=== PATIENT | male | born 1955 | race Caucasian/White ===

== ENCOUNTER 2016-09-01 23:24 | Inpatient (IN) | payer MEDICARE ==
[2016-09-01] MEDS ORDERED: NITROGLYCERIN OINT 1 INCH/GM PACKET TOPICAL STA (23:46)
[2016-09-01] MEDS ORDERED: ASPIRIN 81 MG CHEW PO STA (23:46)
--- NOTE | 2016-09-01 23:50 | ED ---
General Adult HPI - General Chief complaint: Chest Pain Stated complaint: chest pain YARIEL Time Seen by Provider: 09/01/16 23:30 Source: patient, RN notes reviewed Mode of arrival: wheelchair Limitations: no limitations - History of Present Illness Initial comments: This is a 7-year-old male with past medical history significant for diabetes and hypertension. Patient states about 6:00 this evening he started having chest pain he denies any radiation of the chest pain. states he complained of shortness of breath but patient tells me he wasn't short of breath. Patient denies any diaphoresis. Patient denies abdominal pain patient denies nausea vomiting or diarrhea. Patient denies any headache patient denies numbness weakness. Patient denies any lightheadedness dizziness or near syncopal episode. Patient denies any fever chills or cough. Patient denies any leg edema or calf pain. - Related Data Home Medications Medication Instructions Recorded Confirmed risperiDONE [RisperDAL] 2 mg PO HS 05/22/14 09/01/16 DULoxetine HCL [Cymbalta] 120 mg PO HS 07/31/15 09/01/16 Pravastatin Sodium [Pravachol] 20 mg PO HS 07/31/15 09/01/16 Albuterol Inhaler [Ventolin Hfa 2 puff INHALATION RT-Q6H PRN 09/01/16 09/01/16 Inhaler] Divalproex ER [Depakote ER] 1,000 mg PO 09/01/16 09/01/16 Lisinopril [Zestril] 10 mg PO 09/01/16 09/01/16 Terazosin [Hytrin] 1 mg PO [facility] 09/01/16 09/01/16 amLODIPine [Norvasc] 5 mg PO 09/01/16 09/01/16 Allergies Allergy/AdvReac Type Severity Reaction Status Date / Time No Known Allergies Allergy Verified 09/01/16 23:45 Review of Systems ROS Statement: Those systems with pertinent positive or pertinent negative responses have been documented in the HPI. ROS Other: All systems not noted in ROS Statement are negative. Past Medical History Past Medical History: COPD, CVA/TIA, Diabetes Mellitus, Hypertension, Myocardial Infarction ([place]), Thyroid Disorder Additional Past Medical History / Comment(s): CVA- thought process impaired at times, investigating parkinson's per Last Myocardial Infarction Date:: 2011 History of Any Multi-Drug Resistant Organisms: None Reported Past Surgical History: No Surgical Hx Reported Additional Past Surgical History / Comment(s): right foot surgery Past Anesthesia/Blood Transfusion Reactions: No Reported Reaction Past Psychological History: Bipolar Smoking Status: Current every day smoker Past Alcohol Use History: None Reported Past Drug Use History: None Reported - Past Family History Father Family Medical History: No Reported History General Exam - General Exam Comments Initial Comments: GENERAL: Patient is well-developed and well-nourished. Patient is nontoxic and well- hydrated and is in no acute distress. ENT: Neck is soft and supple. No significant lymphadenopathy is noted. Oropharynx is clear. Moist mucous membranes. Neck has full range of motion without eliciting any pain. EYES: The sclera were anicteric and conjunctiva were pink and moist. Extraocular movements were intact and pupils were equal round and reactive to light. Eyelids were unremarkable. PULMONARY: Unlabored respirations. Good breath sounds bilaterally. No audible rales rhonchi or wheezing was noted. CARDIOVASCULAR: There is a regular rate and rhythm without any murmurs gallops or rubs. ABDOMEN: Soft and nontender with normal bowel sounds. No palpable organomegaly was noted. There is no palpable pulsatile mass. SKIN: Skin is clear with no lesions or rashes and otherwise unremarkable. NEUROLOGIC: Patient is alert and oriented x3. Cranial nerves II through XII are grossly intact. Motor and sensory are also intact. Normal speech, volume and content. Symmetrical smile. MUSCULOSKELETAL: Normal extremities with adequate strength and full range of motion. No lower extremity swelling or edema. No calf tenderness. LYMPHATICS: No significant lymphadenopathy is noted PSYCHIATRIC: Normal psychiatric evaluation. Limitations: no limitations Course Vital Signs 09/01/16 09/02/16 09/02/16 23:29 01:07 02:32 Temperature 99.2 F Pulse Rate 105 H 103 H 84 Respiratory 20 16 16 Rate Blood Pressure 119/61 102/73 133/65 O2 Sat by Pulse 95 98 98 Oximetry Medical Decision Making - Medical Decision Making EKG shows sinus tachycardia at 101 bpm AL interval is 138 QRSs 100 QT interval 364 QTC is 471 patient has T-wave inversions in leads 12 and aVL as well as V6. I compared this to an old EKG these appear to be new findings. Chest x-ray shows no acute abnormality. Radiologist mentions a widened mediastinum. CT of the aorta shows no acute abnormality. Because the patient's risk factors and presentation of his pain I decided to start the patient however because he was having unstable angina. I called the primary medical care doctor admitted the patient and I consult cardiology - Lab Data Result diagrams: 09/01/16 23:55 09/01/16 23:55 Lab Results 09/01/16 09/01/16 09/01/16 Range/Units 23:55 23:55 23:55 WBC 13.8 H (3.8-10.6) k/uL RBC 5.28 (4.30-5.90) m/uL Hgb 15.3 (13.0-17.5) gm/dL Hct 44.2 (39.0-53.0) % MCV 83.6 (80.0-100.0) fL MCH 28.9 (25.0-35.0) pg MCHC 34.5 (31.0-37.0) g/dL RDW 13.3 (11.5-15.5) % Plt Count 177 (150-450) k/uL Neutrophils % 67 % Lymphocytes % 22 % Monocytes % 8 % Eosinophils % 2 % Basophils % 1 % Neutrophils # 9.2 H (1.3-7.7) k/uL Lymphocytes # 3.0 (1.0-4.8) k/uL Monocytes # 1.1 H (0-1.0) k/uL Eosinophils # 0.3 (0-0.7) k/uL Basophils # 0.1 (0-0.2) k/uL PT (9.0-12.0) sec INR (<1.1) APTT (22.0-30.0) sec Sodium 138 (137-145) mmol/L Potassium 3.4 L (3.5-5.1) mmol/L Chloride 101 (98-107) mmol/L Carbon Dioxide 24 (22-30) mmol/L Anion Gap 13 mmol/L BUN 29 H (9-20) mg/dL Creatinine 1.50 H (0.66-1.25) mg/dL Est GFR (MDRD) Af Amer 58 (>60 ml/min/1.73 sqM) Est GFR (MDRD) Non-Af 48 (>60 ml/min/1.73 sqM) Glucose 153 H (74-99) mg/dL Calcium 9.2 (8.4-10.2) mg/dL Magnesium 1.7 (1.6-2.3) mg/dL Total Bilirubin 1.0 (0.2-1.3) mg/dL AST 17 (17-59) U/L ALT 18 L (21-72) U/L Alkaline Phosphatase 73 (38-126) U/L Total Creatine Kinase 54 L (55-170) U/L CK-MB (CK-2) 0.7 (0.0-2.4) ng/mL CK-MB (CK-2) Rel Index 1.3 Troponin I 0.017 (0.000-0.034) ng/mL Total Protein 7.2 (6.3-8.2) g/dL Albumin 4.1 (3.5-5.0) g/dL 09/01/16 Range/Units 23:55 WBC (3.8-10.6) k/uL RBC (4.30-5.90) m/uL Hgb (13.0-17.5) gm/dL Hct (39.0-53.0) % MCV (80.0-100.0) fL MCH (25.0-35.0) pg MCHC (31.0-37.0) g/dL RDW (11.5-15.5) % Plt Count (150-450) k/uL Neutrophils % % Lymphocytes % % Monocytes % % Eosinophils % % Basophils % % Neutrophils # (1.3-7.7) k/uL Lymphocytes # (1.0-4.8) k/uL Monocytes # (0-1.0) k/uL Eosinophils # (0-0.7) k/uL Basophils # (0-0.2) k/uL PT 11.3 (9.0-12.0) sec INR 1.1 (<1.1) APTT 26.5 (22.0-30.0) sec Sodium (137-145) mmol/L Potassium (3.5-5.1) mmol/L Chloride (98-107) mmol/L Carbon Dioxide (22-30) mmol/L Anion Gap mmol/L BUN (9-20) mg/dL Creatinine (0.66-1.25) mg/dL Est GFR (MDRD) Af Amer (>60 ml/min/1.73 sqM) Est GFR (MDRD) Non-Af (>60 ml/min/1.73 sqM) Glucose (74-99) mg/dL Calcium (8.4-10.2) mg/dL Magnesium (1.6-2.3) mg/dL Total Bilirubin (0.2-1.3) mg/dL AST (17-59) U/L ALT (21-72) U/L Alkaline Phosphatase (38-126) U/L Total Creatine Kinase (55-170) U/L CK-MB (CK-2) (0.0-2.4) ng/mL CK-MB (CK-2) Rel Index Troponin I (0.000-0.034) ng/mL Total Protein (6.3-8.2) g/dL Albumin (3.5-5.0) g/dL Critical Care Time Critical Care Time: Yes Total Critical Care Time: 35 Disposition Clinical Impression: Unstable angina pectoris Disposition: ADMITTED IP TO THIS [facility] Condition: Good Time of Disposition: 03:17
[2016-09-02 00:09] LABS: Basophils # (A) 0.1 k/uL (0-0.2); Basophils % (A) 1 %; CH 30.1; CHCM 36.1; Eosinophils # (A) 0.3 k/uL (0-0.7); Eosinophils % (A) 2 %; HCT 44.2 % (39.0-53.0); HDW 3.11; HGB 15.3 gm/dL (13.0-17.5); Luc # (Auto) 0.11; Luc % (Auto) 1; Lymphocytes % (A) 22 %; MCH 28.9 pg (25.0-35.0); MCHC 34.5 g/dL (31.0-37.0); MCV 83.6 fL (80.0-100.0); Mean Platelet Volume 8.5; Monocytes # (A) 1.1 k/uL (0-1.0); Monocytes % (A) 8 %; Neutrophils # (A) 9.2 k/uL (1.3-7.7); Neutrophils % (A) 67 %; RBC 5.28 m/uL (4.30-5.90); RDW 13.3 % (11.5-15.5); WBC 13.8 k/uL (3.8-10.6); WBC (Perox) 13.68
[2016-09-02 00:19] LABS: Calcium 9.2 mg/dL (8.4-10.2); INR 1.1 (<1.1); Magnesium 1.7 mg/dL (1.6-2.3); Partial Thromboplastin Time 26.5 sec (22.0-30.0); Potassium 3.4 mmol/L (3.5-5.1); Prothrombin Time 11.3 sec (9.0-12.0); Total Protein 7.2 g/dL (6.3-8.2)
[2016-09-02 00:40] LABS: Creatine Kinase MB 0.7 ng/mL (0.0-2.4); Troponin I 0.017 ng/mL (0.000-0.034)
--- NOTE | 2016-09-02 01:05 | XR ---
EXAM: XR Chest, 2 Views CLINICAL HISTORY: Chest pain. TECHNIQUE: Frontal and lateral views of the chest. COMPARISON: Chest radiograph dated 06/28/14. FINDINGS: Lungs: No airspace consolidation. Pleural space: No significant pleural effusion. No pneumothorax. Heart: Large cardiac silhouette. Bones/joints: Degenerative changes at the acromioclavicular joints. IMPRESSION: 1. Large cardiac silhouette. 2. No airspace opacity or pleural effusion.
[2016-09-02] MEDS ORDERED: RX INFO: IV CONTRAST WAS GIVEN 1 EACH MISC MISCELLANE PRN (01:09)
--- NOTE | 2016-09-02 03:12 | CT ---
EXAM: CT Angiography Chest Without and With Intravenous Contrast CT Angiography Abdomen Without and With Intravenous Contrast CLINICAL HISTORY: Chest pain, COPD, stroke. TECHNIQUE: Axial computed tomographic angiography images of the chest and abdomen without and with intravenous contrast using CT angiography protocol. CTDI is 11.3 mGy and DLP is 620 mGy-cm CTDI is 9.3 mGy and DLP is 528 mGy- cm This CT exam was performed using one or more of the following dose reduction techniques: automated exposure control, adjustment of the mA and/or kV according to patient size, and/or use of iterative reconstruction technique. MIP reconstructed images were created and reviewed. Coronal and sagittal reformatted images were created and reviewed. COMPARISON: CT chest dated 06/28/14. FINDINGS: VASCULATURE: Aorta: No aortic aneurysm or dissection. There is subtle ectasia of the distal abdominal aorta, measuring up to 2.3 cm. Pulmonary arteries: Not well-visualized due to contrast bolus timing. Great vessels of aortic arch: No acute findings. No dissection. No occlusion or significant stenosis. Celiac trunk and mesenteric arteries: No acute findings. Mild atherosclerotic plaque. No occlusion or significant stenosis. Renal arteries: No acute findings. No occlusion or significant stenosis. CHEST: Lungs: No airspace consolidation. A 6 mm pulmonary nodule at the right lung apex is unchanged (remeasured). Pleural space: Unremarkable. No significant effusion. No pneumothorax. Heart: Cardiomegaly. Small to moderate pericardial effusion measures up to 1.1 cm thick. Mediastinum: Trace secretions within the distal trachea. Thyroid: There is a 9 mm left thyroid lobe hypodense nodule. ABDOMEN: Liver: Prominent right hepatic lobe. No mass. Gallbladder and bile ducts: Trace cholelithiasis or gallbladder sludge. No ductal dilation. Pancreas: Unremarkable. No ductal dilation. No mass. Spleen: The spleen is mildly enlarged, measuring 14 x 7 cm. Adrenals: Unremarkable. Kidneys and ureters: There is a 5 x 8 mm nonobstructing stone at the upper pole of the right kidney. A 3.6 cm hypodensity at the midportion of the right kidney, most likely represents a cyst. Stomach and bowel: Unremarkable as visualized. No obstruction. Intraperitoneal space: Unremarkable as visualized. No significant fluid collection. No free air. CHEST and ABDOMEN: Bones/joints: Degenerative changes of the thoracic spine. Anterior bridging osteophytes at the mid/lower thoracic spine, compatible with DISH. Facet arthropathy at the lower lumbar spine. No acute fracture. No dislocation. IMPRESSION: 1. No aortic aneurysm or dissection. 2. Cardiomegaly. 3. Small to moderate pericardial effusion measures up to 1.1 cm thick. 4. A 6 mm (remeasured) pulmonary nodule at the right lung apex is unchanged. 5. Nonobstructing 5 x 8 mm right renal stone. 6. Mild splenomegaly. 7. Additional chronic and incidental findings as above. [employer] 09/02/16 03:14 Verify Receipt Verified receipt with ER Senior Credit Officer, given to Dr. Glover on 09/02 03:14 (-04:00)
[2016-09-02] MEDS ORDERED: HEPARIN SODIUM,PORCINE 5,000 UNIT/ML 1 ML VIAL IV ONE (03:16)
[2016-09-02] MEDS ORDERED: NITROGLYCERIN SL TABS 0.4 MG TAB SUBLINGUAL PRN (03:17)
[2016-09-02] MEDS: HEPARIN SODIUM,PORCINE/D5W PMX 25,000 UNIT in DEXTROSE/WATER 1 500ML.BAG IV SCH ×2 (04:11→04:15)
[2016-09-02 07:56] LABS: Creatine Kinase MB 0.5 ng/mL (0.0-2.4); Troponin I 0.027 ng/mL (0.000-0.034)
[2016-09-02] MEDS: NITROGLYCERIN OINT 1 INCH/GM PACKET TOPICAL SCH ×3 (08:00→17:47)
[2016-09-02 10:51] LABS: Glucose,Whole Blood 106 mg/dL (75-99)
[2016-09-02] MEDS ORDERED: ALBUTEROL NEBULIZED 2.5 MG/3 ML INHALATION PRN (13:29)
--- NOTE | 2016-09-02 13:29 | P.HPIM ---
History of Present Illness H&P Date: 09/02/16 Chief Complaint: Chest pain. This is a 7-year-old male one of Dr. Francis with a previous medical history significant for hypertension and hypertensive cardio vascular disease, history of coronary artery disease post microinfarction back in 2011 without any left heart catheterization, history of TIA with a cerebrovascular accident back in 2008 with left-sided hand weakness and mild speech residual, hyperlipidemia, are considered disease, chronic tobacco use and dependence with COPD, patient was seen by about a week ago and he was having symptoms of possible TIA versus stroke and he was having issues with the left eye, at that time he was seen her and he was supposed to follow-up with her as an outpatient next week however the patient was laying down in bed yesterday watching TV at around 6:00 in the evening when he developed to have mid sternal chest pressure radiating to the neck associated with no shortness of breath, has no nausea vomiting or diarrhea at that time. Patient ended up coming to the emergency department today in the morning because of recurrent chest pain and he was admitted to the hospital for evaluation for unstable angina his initial cardiac enzymes are negative. Was placed on heparin drip, patient has been falling quite a bit he has not been caring for himself quite a bit he has significant bruising on his left lower extremity he did not have any closed head trauma over the last few days. Review of Systems Constitutional: Reports fatigue, Reports weakness, Denies anorexia, Denies chronic headaches, Denies chronic pain, Denies weight gain, Denies weight loss Eyes: bilateral blurred vision, bilateral decreased vision, denies bulging eye Ears: deny: decreased hearing Ears, nose, mouth and throat: Denies dysphagia, Denies neck lump, Denies swelling in throat, Denies sore throat, Denies vertigo Cardiovascular: Reports dyspnea on exertion, Reports high blood pressure, Reports shortness of breath, Denies chest pain, Denies decreased exercise tolerance, Denies phlebitis, Denies rapid heart beat, Denies syncope Respiratory: Denies congestion, Denies cough, Denies cough with sputum, Denies home oxygen, Denies sleep apnea, Denies snoring, Denies wheezing Gastrointestinal: Denies abdominal pain, Denies bloating, Denies BRBPR, Denies constipation, Denies excessive gas, Denies heartburn, Denies melena, Denies nausea, Denies vomiting Genitourinary: Reports nocturia, Denies dysuria Musculoskeletal: Reports atrophy, Reports frequent falls, Reports gait dysfunction Musculoskeletal: absent: ankle pain, ankle stiffness, ankle swelling, elbow pain , elbow stiffness, elbow swelling, foot pain, foot stiffness, foot swelling, hand pain, hand stiffness, hand swelling, hip pain, hip stiffness, hip swelling , knee pain, knee stiffness, knee swelling, shoulder pain, shoulder stiffness, shoulder swelling, wrist pain, wrist stiffness, wrist swelling Integumentary: Denies pruritus, Denies rash Neurological: Reports change in speech, Reports gait dysfunction, Reports spasticity, Denies headaches, Denies loss of vision, Denies memory loss, Denies migraines, Denies motor disturbance, Denies numbness, Denies paresthesias, Denies tremors, Denies vertigo Psychiatric: Denies anxiety, Denies depression Endocrine: Denies fatigue, Denies weight change Past Medical History Past Medical History: Atrial Fibrillation, COPD, CVA/TIA, Hyperlipidemia, Hypertension, Myocardial Infarction ([place]), Musculoskeletal Disorder, Neurologic Disorder, Osteoarthritis (OA), Prostate Disorder, Thyroid Disorder Additional Past Medical History / Comment(s): CVA- slight R sided weakness and thought process impaired at times, parkinson's -pt states they still have not diagnosed if he has it or not, hypothryoid, arthritis bilateral hands. Last Myocardial Infarction Date:: 2011 History of Any Multi-Drug Resistant Organisms: None Reported Past Surgical History: Appendectomy Additional Past Surgical History / Comment(s): right foot toe surgery as a child , pt denies ever having cardiac cath. Past Anesthesia/Blood Transfusion Reactions: No Reported Reaction Past Psychological History: Bipolar Additional Psychological History / Comment(s): Pt resides with his spouse. He uses a walker to ambulate. He no longer drives. Spouse drives. His manages his medications. No home care. Smoking Status: Current every day smoker (Patient smokes about a pack every day for the past 3 years, he denies any marijuana use he denies any street drug use or abuse, he denies any alcohol abuse.) Past Alcohol Use History: None Reported Additional Past Alcohol Use History / Comment(s): Pt started smoking in 1968 and is about 1 ppd smoker. Past Drug Use History: None Reported - Past Family History Father Family Medical History: Cancer (Father in his 70s from some sort of cancer did not recall the type) Additional Family Medical History / Comment(s): Pt states his father was healthy and at the age of 80yrs. Mother Family Medical History: Cancer, Vascular Disorder (Mother at age of 60 from a brain aneurysm.) Additional Family Medical History / Comment(s): Mother of breast cancer at the age of 41 yrs. Brother(s) Family Medical History: No Reported History (Patient has 3 half-brothers no major medical problems) Medications and Allergies Home Medications Medication Instructions Recorded Confirmed Type risperiDONE [RisperDAL] 2 mg PO HS 05/22/14 09/01/16 History DULoxetine HCL [Cymbalta] 120 mg PO HS 07/31/15 09/01/16 History Pravastatin Sodium [Pravachol] 20 mg PO HS 07/31/15 09/01/16 History Albuterol Inhaler [Ventolin Hfa 2 puff INHALATION RT-Q6H PRN 09/01/16 09/01/16 History Inhaler] Divalproex ER [Depakote ER] 1,000 mg PO HS 09/01/16 09/01/16 History Lisinopril [Zestril] 10 mg PO HS 09/01/16 09/01/16 History Terazosin [Hytrin] 1 mg PO QAM 09/01/16 09/01/16 History amLODIPine [Norvasc] 5 mg PO HS 09/01/16 09/01/16 History Allergies Allergy/AdvReac Type Severity Reaction Status Date / Time No Known Allergies Allergy Verified 09/01/16 23:45 Physical Exam Vitals: Vital Signs Temp Pulse Pulse Resp BP BP Pulse Ox 09/02/16 12:00 97.0 F L 75 130/69 98 09/02/16 11:35 97.5 F L 71 16 133/87 98 09/02/16 09:49 68 16 121/69 100 09/02/16 09:00 66 16 125/79 99 09/02/16 07:00 68 16 121/72 98 09/02/16 06:21 77 16 107/69 98 09/02/16 04:18 82 16 103/63 98 Intake and Output 09/01/16 09/02/16 09/02/16 22:59 06:59 14:59 Intake Total 71.333 Balance 71.333 Intake: Intake, IV Titration 71.333 Amount Heparin Sodium,Porcine/ 71.333 D5w Pmx 25,000 unit In Dextrose/Water 1 500ml. bag @ 10.25 UNITS/KG/HR 20.08 mls/hr IV .Q24H [facility] Rx#:[id number] - Constitutional General appearance: average body habitus, mild distress - EENT Eyes: anicteric sclerae, no EOMI, PERRLA, no ptosis, no scleral icterus, normal appearance ENT: hearing grossly normal, normal oropharynx, no thrush Ears: bilateral: normal - Neck Neck: no lymphadenopathy, normal ROM, no rigidity, no stridor, no thyromegaly Carotids: bilateral: upstroke delayed Thyroid: bilateral: normal size - Respiratory Respiratory: bilateral: diminished, prolonged expiration, negative: dullness, rales, rhonchi, wheezing, prolonged inspiration - Cardiovascular Rhythm: regular Heart sounds: normal: S1, S2 Abnormal Heart Sounds: systolic murmur, no rub, no S3 Gallop, no S4 Gallop, no click - Gastrointestinal General gastrointestinal: normal bowel sounds, no rigid, no scaphoid, soft, no splenomegaly, no tenderness, no umbilical hernia, no ventral hernia - Integumentary Integumentary: normal, normal turgor - Neurologic Neurologic: CNII-XII intact - Musculoskeletal Musculoskeletal: generalized weakness - Psychiatric Psychiatric: A&O x's 3, no appropriate affect, no intact judgment & insight Results CBC & Chem 7: 09/01/16 23:55 09/01/16 23:55 Labs: Abnormal Lab Results - Last 24 Hours (Table) 09/02/16 09/02/16 09/02/16 Range/Units 06:38 06:38 10:49 APTT 55.2 H (22.0-30.0) sec POC Glucose (mg/dL) 106 H (75-99) mg/dL Total Creatine Kinase 36 L (55-170) U/L Thrombosis Risk Factor Assmnt - DVT/VTE Prophylaxis DVT/VTE Prophylaxis: Pharmacologic Prophylaxis ordered, Mechanical Prophylaxis ordered - Choose All That Apply Any of the Below Risk Factors Present?: Yes Each Factor Represents 1 point: Abnormal pulmonary function (COPD), Age 41-60 years, Obesity (BMI >25) Other Risk Factors: No Other congenital or acquired thrombophilia - If yes, enter type in comment: No Thrombosis Risk Factor Assessment Total Risk Factor Score: 3 Thrombosis Risk Factor Assessment Level: Moderate Risk Assessment and Plan Plan: Assessment and plan: 1. Unstable angina in a patient with a prior history of CAD with AR. Start the patient on heparin drip, aspirin 325 mg orally once every day, nitro glycerin paste 1 inch every 6 hours, continue aspirin 325 mg orally once every day, continue Lipitor 40 mg orally once every day, echocardiogram, patient will be seen and evaluated by cardiology. 2. Small to moderate pericardial effusion and cardiology. Echocardiogram for evaluation to rule out any cardiac tamponade. 2. Hypertension and hypertensive cardiovascular disease. Continue patient on lisinopril 10 mg orally once every day, amlodipine 10 mg orally once every day. 3. Hyperlipemia. Continue Lipitor 40 mg orally once every day. 4. Reported history of diabetes mellitus type 2. Patient is not taking any medication at this time we'll check hemoglobin A1c. 5. History of CVA and TIA. Continue aspirin 325 mg orally once every day for secondary stroke prevention along with Lipitor 40 mg orally once every day. 6. Possible Parkinson disease. Patient may benefit from small dose of Sinemet. 7. Tobacco use and dependence. Smoking cessation and counseling an increased risk of CVA, CAD, mellitus. 8. COPD. Patient will be started on Symbicort 160/4.5 g 2 puffs inhalation twice every day, Spiriva HandiHaler 1 capsule inhalation once every day. 9. Right pulmonary nodule. Patient will need to have a computed tomography scan of the chest in 6 months from now. 10. Nonobstructing kidney stone. We will check the patient intact PTH. 11. Acute on chronic kidney disease. Continue IV fluid resuscitation repeat the patient CMP tomorrow morning check magnesium phosphorus and intact PTH. 12. Possible DISH. Follow-up with the managing broker an outpatient. 13. Enlarged prostate. Continue Hytrin 1 mg orally once every day. 14. Bipolar disorder. Continue Cymbalta 120 mg orally once every day. 15. DVT prophylaxis. Currently on heparin drip. 16. GI prophylaxis. Continue patient on Protonix 40 mg orally once every day. 17. Patient is full code. 18. Admit to inpatient. Estimate a length of stay 2 midnights.
[2016-09-02 13:31] LABS: Creatine Kinase MB 0.6 ng/mL (0.0-2.4); Troponin I 0.014 ng/mL (0.000-0.034)
[2016-09-02] MEDS ORDERED: TIOTROPIUM 18 MCG/PUFF INHALER INHALATION STA (13:34)
--- NOTE | 2016-09-02 14:45 | P.CRDCN ---
History of Present Illness Consult date: 09/02/16 Requesting physician: Scott Dougherty Consult reason: chest pain Chief complaint: Chest pain History of present illness: This is a pleasant 61-year-old gentleman with known history of hypertension, prior myocardial infarction, TIA, prior CVAs, nicotine dependence , COPD, hyperlipidemia, Parkinson's. Patient presented to the hospital on this occasion with symptoms of midsternal chest pain which started around 6 PM last evening. Patient states that the pain was sharp in nature and worsened with taking a deep breath. Also states that the pain He does state that he became short of breath and clammy. EKG on presentation here showed sinus tachycardia with inferior lateral ST-T wave changes. Chest x-ray reveals no significant change. CTA of the aorta was performed which did not reveal any evidence of aneurysm or dissection. Small to moderate pericardial effusion measuring 1.1 cm was noted. There was also a 6 mm pulmonary nodule at the right lung apex unchanged from previous. Blood pressure on arrival here 120/60 with a heart rate of 105, 95% on room air, temperature 99.2. Blood pressure today 130/60 with a heart rate in the 70s. Blood cell count 13.8, hemoglobin 15.3, potassium 3.4, BUN 29, creatinine 1.5. Troponins 0.017, 0.027, 0.014. He is currently chest pain-free. Past Medical History Past Medical History: Atrial Fibrillation, COPD, CVA/TIA, Hyperlipidemia, Hypertension, Myocardial Infarction ([place]), Musculoskeletal Disorder, Neurologic Disorder, Osteoarthritis (OA), Prostate Disorder, Thyroid Disorder Additional Past Medical History / Comment(s): CVA- slight R sided weakness and thought process impaired at times, parkinson's -pt states they still have not diagnosed if he has it or not, hypothryoid, arthritis bilateral hands. Last Myocardial Infarction Date:: 2011 History of Any Multi-Drug Resistant Organisms: None Reported Past Surgical History: Appendectomy Additional Past Surgical History / Comment(s): right foot toe surgery as a child , pt denies ever having cardiac cath. Past Anesthesia/Blood Transfusion Reactions: No Reported Reaction Past Psychological History: Bipolar Additional Psychological History / Comment(s): Pt resides with his spouse. He uses a walker to ambulate. He no longer drives. Spouse drives. His manages his medications. No home care. Smoking Status: Current every day smoker (Patient smokes about a pack every day for the past 3 years, he denies any marijuana use he denies any street drug use or abuse, he denies any alcohol abuse.) Past Alcohol Use History: None Reported Additional Past Alcohol Use History / Comment(s): Pt started smoking in 1968 and is about 1 ppd smoker. Past Drug Use History: None Reported - Past Family History Father Family Medical History: Cancer (Father in his 70s from some sort of cancer did not recall the type) Additional Family Medical History / Comment(s): Pt states his father was healthy and at the age of 80yrs. Mother Family Medical History: Cancer, Vascular Disorder (Mother at age of 60 from a brain aneurysm.) Additional Family Medical History / Comment(s): Mother of breast cancer at the age of 41 yrs. Brother(s) Family Medical History: No Reported History (Patient has 3 half-brothers no major medical problems) Medications and Allergies Home Medications Medication Instructions Recorded Confirmed Type risperiDONE [RisperDAL] 2 mg PO HS 05/22/14 09/01/16 History DULoxetine HCL [Cymbalta] 120 mg PO HS 07/31/15 09/01/16 History Pravastatin Sodium [Pravachol] 20 mg PO HS 07/31/15 09/01/16 History Albuterol Inhaler [Ventolin Hfa 2 puff INHALATION RT-Q6H PRN 09/01/16 09/01/16 History Inhaler] Divalproex ER [Depakote ER] 1,000 mg PO 09/01/16 09/01/16 History Lisinopril [Zestril] 10 mg PO HS 09/01/16 09/01/16 History Terazosin [Hytrin] 1 mg PO QA 09/01/16 09/01/16 History amLODIPine [Norvasc] 5 mg PO 09/01/16 09/01/16 History Allergies Allergy/AdvReac Type Severity Reaction Status Date / Time No Known Allergies Allergy Verified 09/01/16 23:45 Physical Exam Vitals: Vital Signs Temp Pulse Pulse Resp BP BP Pulse Ox 09/02/16 12:00 97.0 F L 75 130/69 98 09/02/16 11:35 97.5 F L 71 16 133/87 98 09/02/16 09:49 68 16 121/69 100 09/02/16 09:00 66 16 125/79 99 09/02/16 07:00 68 16 121/72 98 09/02/16 06:21 77 16 107/69 98 09/02/16 04:18 82 16 103/63 98 Intake and Output 09/01/16 09/02/16 09/02/16 22:59 06:59 14:59 Intake Total 71.333 Balance 71.333 Intake: Intake, IV Titration 71.333 Amount Heparin Sodium,Porcine/ 71.333 D5w Pmx 25,000 unit In Dextrose/Water 1 500ml. bag @ 10.25 UNITS/KG/HR 20.08 mls/hr IV .Q24H [facility] Rx#:[id number] PHYSICAL EXAMINATION: HEENT: Head is atraumatic, normocephalic. Pupils equal, round. Neck is supple. There is no elevated jugular venous pressure. HEART EXAMINATION: R S1 and S2 systolic murmur is heard. CHEST EXAMINATION: Lungs are clear to auscultation and precussion. No chest wall tenderness is noted on palpation or with deep breathing. ABDOMEN: Soft, nontender. Bowel sounds are heard. No organomegaly noted. EXTREMITIES: 2+ peripheral pulses with no evidence of peripheral edema and no calf tenderness noted. NEUROLOGIC patient is awake, alert and oriented -3. . Results 09/01/16 23:55 09/01/16 23:55 Cardiac Enzymes 09/02/16 09/02/16 Range/Units 06:38 12:44 CK-MB (CK-2) 0.5 0.6 (0.0-2.4) ng/mL Troponin I 0.027 0.014 (0.000-0.034) ng/mL Coagulation 09/02/16 Range/Units 06:38 APTT 55.2 H (22.0-30.0) sec Current Medications Generic Name Dose Route Start Last Admin Trade Name Freq PRN Reason Stop Dose Admin Albuterol Sulfate 2.5 mg 09/02/16 13:29 Ventolin Nebulized INHALATION RT-Q6H PRN Dyspnea Amlodipine Besylate 5 mg 09/02/16 21:00 Norvasc PO HS [facility] Aspirin 325 mg 09/03/16 09:00 Aspirin PO DAILY [facility] Divalproex Sodium 1,000 mg 09/02/16 21:00 Depakote Er PO HS [facility] Duloxetine HCl 120 mg 09/02/16 21:00 Cymbalta PO HS [facility] Heparin Sodium/Dextrose 25,000 500 mls @ 20.08 mls/hr 09/02/16 03:30 07:49 unit/ IV Solution IV 10.2 units/kg/hr .Q24H [facility] 20 mls/hr Protocol Titration 10.25 UNITS/KG/HR Lisinopril 10 mg 09/02/16 21:00 Zestril PO HS [facility] Miscellaneous Information 1 each 09/02/16 01:09 09/02/16 02:31 Rx Info: Iv Contrast Was Given MISCELLANE 09/04/16 01:11 1 each DAILY PRN Administration Per Protocol Nitroglycerin 1 inch 09/02/16 06:00 09/02/16 12:56 Nitro-Bid Oint TOPICAL 1 inch Q6HR [facility] Administration Nitroglycerin 0.4 mg 09/02/16 03:17 Nitrostat SUBLINGUAL Q5M PRN Chest Pain Pravastatin Sodium 20 mg 09/02/16 21:00 Pravachol PO HS [facility] Risperidone 2 mg 09/02/16 21:00 Risperdal PO HS [facility] Terazosin HCl 1 mg 09/03/16 09:00 Hytrin PO QAM [facility] Intake and Output 09/01/16 09/02/16 09/02/16 22:59 06:59 14:59 Intake Total 71.333 Balance 71.333 Intake: Intake, IV Titration 71.333 Amount Heparin Sodium,Porcine/ 71.333 D5w Pmx 25,000 unit In Dextrose/Water 1 500ml. bag @ 10.25 UNITS/KG/HR 20.08 mls/hr IV .Q24H [facility] Rx#:[id number] EKG Interpretations (text) EKG shows a sinus tachycardia with inferior lateral ST-T wave changes Assessment and Plan Plan: Assessment and plan #1 chest pain with some atypical features for coronary artery disease. Currently on IV heparin drip. EKG shows normal sinus rhythm with inferior lateral ST-T wave changes. Patient has been noted to have these changes on prior EKGs. Troponins 0.017, 0.0-7, 0.014. #2 small to moderate pericardial effusion on CT #3 hypertension #4 hyperlipidemia #5 diabetes #6 Parkinson's #7 History of TIA and CVAs #8nicotine dependence #9 COPD Plan Will obtain a d-dimer, sed rate, echocardiogram with Doppler study. We will also schedule the patient for a Lexiscan stress test tomorrow. Further recommendations to follow. DNP note has been reviewed, I agree with a documented findings and plan of care. Patient was seen and examined.
[2016-09-02 16:33] LABS: Glucose,Whole Blood 112 mg/dL (75-99)
[2016-09-02 20:55] LABS: Glucose,Whole Blood 109 mg/dL (75-99)
[2016-09-02] MEDS: DULoxetine HCL 60 MG CAPSULE.DR PO SCH (21:04)
[2016-09-02] MEDS: amLODIPine 5 MG TAB PO SCH (21:04)
[2016-09-02] MEDS: DIVALPROEX ER 500 MG TAB.ER.24H PO SCH (21:04)
[2016-09-02] MEDS: PRAVASTATIN SODIUM 20 MG TAB PO SCH (21:05)
[2016-09-02] MEDS: risperiDONE 2 MG TAB PO SCH (21:05)
[2016-09-02] MEDS: LISINOPRIL 10 MG TAB PO SCH (21:06)
[2016-09-03] MEDS: NITROGLYCERIN OINT 1 INCH/GM PACKET TOPICAL SCH ×3 (00:33→13:14)
[2016-09-03 02:45] VITALS: RESP 18
[2016-09-03] MEDS: HEPARIN SODIUM,PORCINE/D5W PMX 25,000 UNIT in DEXTROSE/WATER 1 500ML.BAG IV SCH (04:18)
[2016-09-03 06:02] LABS: Glucose,Whole Blood 105 mg/dL (75-99)
[2016-09-03 06:25] LABS: Basophils # (A) 0.1 k/uL (0-0.2); Basophils % (A) 1 %; CH 29.8; CHCM 34.7; Eosinophils # (A) 0.2 k/uL (0-0.7); Eosinophils % (A) 2 %; HCT 37.5 % (39.0-53.0); HDW 3.03; HGB 12.8 gm/dL (13.0-17.5); Luc % (Auto) 1; Lymphocytes # (A) 2.5 k/uL (1.0-4.8); Lymphocytes % (A) 30 %; MCH 29.5 pg (25.0-35.0); MCHC 34.1 g/dL (31.0-37.0); MCV 86.4 fL (80.0-100.0); Mean Platelet Volume 8.6; Monocytes # (A) 0.6 k/uL (0-1.0); Monocytes % (A) 7 %; Neutrophils # (A) 4.8 k/uL (1.3-7.7); Neutrophils % (A) 59 %; RBC 4.35 m/uL (4.30-5.90); RDW 13.4 % (11.5-15.5); WBC 8.2 k/uL (3.8-10.6); WBC (Perox) 8.12
[2016-09-03 06:39] LABS: ALT 14 U/L (21-72); AST 15 U/L (17-59); Alkaline Phosphatase 60 U/L (38-126); Anion Gap 10 mmol/L; Blood Urea Nitrogen 34 mg/dL (9-20); Calcium 8.5 mg/dL (8.4-10.2); Carbon Dioxide 25 mmol/L (22-30); Chloride 104 mmol/L (98-107); Cholesterol 100 mg/dL (<200); Glucose 103 mg/dL (74-99); HDL Cholesterol 32 mg/dL (40-60); Non-African American GFR(MDRD) >60 (>60 ml/min/1.73 sqM); Potassium 3.5 mmol/L (3.5-5.1); Sodium 139 mmol/L (137-145); Total Bilirubin 0.9 mg/dL (0.2-1.3); Total Protein 6.6 g/dL (6.3-8.2); Triglycerides 101 mg/dL (<150)
[2016-09-03] MEDS ORDERED: REGADENOSON 0.4 MG/5 ML SYRINGE IV ONE (09:00)
[2016-09-03] MEDS ORDERED: AMINOPHYLLINE 500 MG/20 ML VIAL IV PRN (09:00)
--- NOTE | 2016-09-03 10:28 | ECHOF ---
Referral Reason:pericardial effusion MEASUREMENTS -------- HEIGHT: 162.6 cm WEIGHT: 98.0 kg BP: 121/69 IVSd: 1.6 cm (0.6 - 1.1) LVIDd: 5.2 cm (3.9 - 5.3) LVPWd: 1.8 cm (0.6 - 1.1) IVSs: 1.7 cm LVIDs: 4.5 cm LVPWs: 1.4 cm LA Diam: 3.6 cm (2.7 - 3.8) LAESV Index (A-L): 48.74 ml/m Ao Diam: 3.6 cm (2.0 - 3.7) AV Cusp: 2.1 cm (1.5 - 2.6) LA Diam: 4.1 cm (2.7 - 3.8) MV EXCURSION: 23.948 mm (> 18.000) MV EF SLOPE: 79 mm/s (70 - 150) EPSS: 0.6 cm MV E Tobi: 0.46 m/s MV DecT: 178 ms MV A Tobi: 0.49 m/s MV E/A Ratio: 0.94 RAP: 5.00 mmHg RVSP: 12.70 mmHg FINDINGS -------- Sinus rhythm. This was a technically adequate study. There is severe concentric left ventricular hypertrophy. Overall left ventricular systolic function is low-normal with, an EF between 50 - 55 %. The right ventricle is normal in size. LA is severely dilated >40 ml/m2 The right atrial size is normal. There is mild aortic valve sclerosis. There is no evidence of aortic regurgitation. Mild mitral regurgitation is present. Mild tricuspid regurgitation present. There is no evidence of pulmonary hypertension. The right ventricular systolic pressure, as measured by Doppler, is 12.70mmHg. There is no pulmonic regurgitation present. The aortic root size is normal. There is a small, generalized pericardial effusion present. CONCLUSIONS -------- 1. There is severe concentric left ventricular hypertrophy. 2. Overall left ventricular systolic function is low-normal with, an EF between 50 - 55 %. 3. LA is severely dilated >40 ml/m2 4. There is mild aortic valve sclerosis. 5. Mild mitral regurgitation is present. 6. Mild tricuspid regurgitation present. 7. There is no evidence of pulmonary hypertension. 8. The right ventricular systolic pressure, as measured by Doppler, is 12.70mmHg. 9. There is a small, generalized pericardial effusion present. THERAPY ADMINISTRATIVE ASSISTANT: Moni Shepherd RDCS
--- NOTE | 2016-09-03 11:19 | NM ---
EXAMINATION TYPE: NM stress lexiscan cardiolite DATE OF EXAM: 09/03/2016 11:07 AM COMPARISON: 07/01/2014 HISTORY: TECHNIQUE: After the intravenous administration of 11 mCi Tc 99m Sestamibi - Cardiolite resting SPEC T images acquired 60 minutes post injection. The patient received 0.4mg Lexiscan, 27.3 mCi Tc 99m Sestamibi - Stress images obtained [address] injection FINDINGS: Review of stress and rest SPECT images demonstrates fixed perfusion defect involving the apical later al myocardium. No definite stress-induced area of reversibility.. Gated analysis shows normal wall m otion with an estimated left ventricular ejection fraction of 43 %. IMPRESSION: No scintigraphic evidence for reversible ischemia. Ejection fraction 43%.
--- NOTE | 2016-09-03 11:24 | EST ---
DATE OF SERVICE: 09/03/2016 AGE: 61Y SEX: M HT: 5'11" WT: 216 lbs. Lexiscan Cardiolite Stress Test *Heart Rate Blood Pressure *Rest: 75 Rest: 151/94 * *Max. Achieved: 85 Maximum BP: 151/94 85% PMHR: 136 100% PMHR: 160 *METS: - INDICATIONS: Chest pain. MEDICATIONS: - CLINICAL INFORMATION: Chest pain, hypertension, history of smoking 1 pack of cigarettes a day for over 40 years. Resting ECG shows sinus rhythm, rate of 75 beats per minute, ME interval of 0.16, QRS 0.08, nonspecific ST-T wave changes. Utilizing a standard Lexiscan protocol, Lexiscan was given IV push followed by serial EKGs without any chest pain or pressure or ST segment deviations indicative of ischemia in any of the monitoring 12 leads. IMPRESSION: 1. Baseline rhythm is sinus with nonspecific ST-T wave changes. 2. Negative Lexiscan Cardiolite study. 3. Nuclear scintigrams to follow from Radiology Department.
[2016-09-03 11:51] LABS: Glucose,Whole Blood 130 mg/dL (75-99)
--- NOTE | 2016-09-03 12:41 | P.PN ---
Subjective This is a 7-year-old male one of Dr. Francis with a previous medical history significant for hypertension and hypertensive cardio vascular disease, history of coronary artery disease post microinfarction back in 2011 without any left heart catheterization, history of TIA with a cerebrovascular accident back in 2008 with left-sided hand weakness and mild speech residual, hyperlipidemia, are considered disease, chronic tobacco use and dependence with COPD, patient was seen by about a week ago and he was having symptoms of possible TIA versus stroke and he was having issues with the left eye, at that time he was seen her and he was supposed to follow-up with her as an outpatient next week however the patient was laying down in bed yesterday watching TV at around 6:00 in the evening when he developed to have mid sternal chest pressure radiating to the neck associated with no shortness of breath, has no nausea vomiting or diarrhea at that time. Patient ended up coming to the emergency department today in the morning because of recurrent chest pain and he was admitted to the hospital for evaluation for unstable angina his initial cardiac enzymes are negative. Was placed on heparin drip, patient has been falling quite a bit he has not been caring for himself quite a bit he has significant bruising on his left lower extremity he did not have any closed head trauma over the last few days. 09/03: He has been seen by cardiology and underwent Lexiscan stress test which was negative. Echocardiogram revealed severe concentric left ventricle hypertrophy with EF 50-55%, LA severely dilated at greater than 40, mild aortic valve sclerosis, mild mitral regurgitation, mild tricuspid regurgitation. No pulmonary hypertension. Small generalized pericardial effusion present. Patient is requesting medicine for his tremors and Sinemet started twice daily. Depakote level is 68.9.. Anticipate possible discharge by Tuesday. Objective - Vital Signs Vital signs: Vital Signs Temp 97.6 F 09/03/16 00:00 Pulse 74 09/03/16 04:00 Resp 18 09/03/16 04:00 BP 113/55 09/03/16 04:00 Pulse Ox 90 L 09/03/16 04:00 Intake & Output 09/02/16 09/03/16 09/03/16 18:59 06:59 18:59 Intake Total 311.333 809.667 Balance 311.333 809.667 Weight 93.4 kg Intake: IV 60 160 Heparin Sodium,Porcine/ 60 160 D5w Pmx 25,000 unit In Dextrose/Water 1 500ml. bag @ 10.25 UNITS/KG/HR 20.08 mls/hr IV .Q24H [facility] Rx#:[id number] Intake, IV Titration 71.333 409.667 Amount Heparin Sodium,Porcine/ 71.333 409.667 D5w Pmx 25,000 unit In Dextrose/Water 1 500ml. bag @ 10.25 UNITS/KG/HR 20.08 mls/hr IV .Q24H [facility] Rx#:[id number] Oral 180 240 - Exam General appearance: average body habitus, mild distress - EENT Eyes: anicteric sclerae, no EOMI, PERRLA, no ptosis, no scleral icterus, normal appearance ENT: hearing grossly normal, normal oropharynx, no thrush Ears: bilateral: normal - Neck Neck: no lymphadenopathy, normal ROM, no rigidity, no stridor, no thyromegaly Carotids: bilateral: upstroke delayed Thyroid: bilateral: normal size - Respiratory Respiratory: bilateral: diminished, prolonged expiration, negative: dullness, rales, rhonchi, wheezing, prolonged inspiration - Cardiovascular Rhythm: regular Heart sounds: normal: S1, S2 Abnormal Heart Sounds: systolic murmur, no rub, no S3 Gallop, no S4 Gallop, no click - Gastrointestinal General gastrointestinal: normal bowel sounds, no rigid, no scaphoid, soft, no splenomegaly, no tenderness, no umbilical hernia, no ventral hernia - Integumentary Integumentary: normal, normal turgor - Neurologic Neurologic: CNII-XII intact - Musculoskeletal Musculoskeletal: generalized weakness - Psychiatric Psychiatric: A&O x's 3, no appropriate affect, no intact judgment & insight - Labs CBC & Chem 7: 09/03/16 05:38 09/03/16 05:38 Labs: Abnormal Lab Results - Last 24 Hours (Table) 09/02/16 09/02/16 09/02/16 Range/Units 10:49 12:44 15:47 Hgb (13.0-17.5) gm/dL Hct (39.0-53.0) % Plt Count (150-450) k/uL APTT (22.0-30.0) sec D-Dimer 0.69 H (<0.60) mg/L FEU BUN (9-20) mg/dL Glucose (74-99) mg/dL POC Glucose (mg/dL) 106 H (75-99) mg/dL AST (17-59) U/L ALT (21-72) U/L Total Creatine Kinase 39 L (55-170) U/L HDL Cholesterol (40-60) mg/dL 09/02/16 09/02/16 09/03/16 Range/Units 16:24 20:54 05:38 Hgb (13.0-17.5) gm/dL Hct (39.0-53.0) % Plt Count (150-450) k/uL APTT (22.0-30.0) sec D-Dimer (<0.60) mg/L FEU BUN 34 H (9-20) mg/dL Glucose 103 H (74-99) mg/dL POC Glucose (mg/dL) 112 H 109 H (75-99) mg/dL AST 15 L (17-59) U/L ALT 14 L (21-72) U/L Total Creatine Kinase (55-170) U/L HDL Cholesterol 32 L (40-60) mg/dL 09/03/16 09/03/16 09/03/16 Range/Units 05:38 05:47 06:01 Hgb 12.8 L (13.0-17.5) gm/dL Hct 37.5 L (39.0-53.0) % Plt Count 137 L (150-450) k/uL APTT 32.8 H (22.0-30.0) sec D-Dimer (<0.60) mg/L FEU BUN (9-20) mg/dL Glucose (74-99) mg/dL POC Glucose (mg/dL) 105 H (75-99) mg/dL AST (17-59) U/L ALT (21-72) U/L Total Creatine Kinase (55-170) U/L HDL Cholesterol (40-60) mg/dL Assessment and Plan Plan: 1. Unstable angina in a patient with a prior history of CAD with [place]. That is post stress test, continue aspirin 325 mg orally once every day, continue Lipitor 40 mg orally once every day, echocardiogram, cardiology consult appreciated. 2. Small to moderate pericardial effusion and cardiology. Echocardiogram for evaluation to rule out any cardiac tamponade. 2. Hypertension and hypertensive cardiovascular disease. Continue patient on lisinopril 10 mg orally once every day, amlodipine 10 mg orally once every day. 3. Hyperlipemia. Continue Lipitor 40 mg orally once every day. 4. Reported history of diabetes mellitus type 2. Patient is not taking any medication at this time we'll check hemoglobin A1c. 5. History of CVA and TIA. Continue aspirin 325 mg orally once every day for secondary stroke prevention along with Lipitor 40 mg orally once every day. 6. Possible Parkinson disease. Sinemet started. 7. Tobacco use and dependence. Smoking cessation and counseling an increased risk of CVA, CAD, mellitus. 8. COPD. Patient will be started on Symbicort 160/4.5 g 2 puffs inhalation twice every day, Spiriva HandiHaler 1 capsule inhalation once every day. 9. Right pulmonary nodule. Patient will need to have a computed tomography scan of the chest in 6 months from now. 10. Nonobstructing kidney stone. We will check the patient intact PTH. 11. Acute kidney injury with chronic kidney disease stage II. CMP tomorrow morning check magnesium phosphorus and intact PTH. 12. Possible DISH. Follow-up with the customer service associate an outpatient. 13. Enlarged prostate. Continue Hytrin 1 mg orally once every day. 14. Bipolar disorder. Continue Cymbalta 120 mg orally once every day. 15. DVT prophylaxis. Currently on heparin drip. 16. GI prophylaxis. Continue patient on Protonix 40 mg orally once every day. 17. Patient is full code. 18. Admit to inpatient. Estimate a length of stay 2 midnight Discharge plan: Home on Tuesday. PT and OT evaluations in place. Impression and plan of care have been directed as dictated by the signing physician. Gina Cade nurse practitioner acting as scribe for signing physician. Time with Patient: Greater than 30
[2016-09-03] MEDS: ASPIRIN 325 MG TAB PO SCH (13:13)
[2016-09-03] MEDS: TERAZOSIN 1 MG CAP PO SCH (13:14)
[2016-09-03] MEDS: CARBIDOPA-LEVODOPA 25-100 MG 1 EACH TAB PO SCH ×2 (13:17→21:51)
[2016-09-03 14:58] LABS: Hemoglobin A1C 4.9 % (4.2-6.1)
--- NOTE | 2016-09-03 15:23 | P.PN ---
Subjective Principal diagnosis: Chest pain This is a pleasant 61-year-old gentleman with known history of hypertension, prior myocardial infarction, TIA, prior CVAs, nicotine dependence , COPD, hyperlipidemia, Parkinson's. Patient presented to the hospital on this occasion with symptoms of midsternal chest pain which started around 6 PM last evening. Patient states that the pain was sharp in nature and worsened with taking a deep breath. Also states that the pain He does state that he became short of breath and clammy. EKG on presentation here showed sinus tachycardia with inferior lateral ST-T wave changes. Chest x-ray reveals no significant change. CTA of the aorta was performed which did not reveal any evidence of aneurysm or dissection. Small to moderate pericardial effusion measuring 1.1 cm was noted. There was also a 6 mm pulmonary nodule at the right lung apex unchanged from previous. Blood pressure on arrival here 120/60 with a heart rate of 105. Shunt underwent a Lexiscan stress test which was negative for any reversible ischemia. Echocardiogram with Doppler study was performed which revealed small effusion with normal LV function. From cardiology's perspective, patient may be able to be discharged home today. We'll make him a follow-up appointment in the office post discharge. Objective - Vital Signs Vital signs: Vital Signs Temp 97.8 F 09/03/16 08:00 Pulse 72 09/03/16 08:00 Resp 18 09/03/16 04:00 BP 124/73 09/03/16 08:00 Pulse Ox 90 L 09/03/16 08:00 Intake & Output 09/02/16 09/03/16 09/03/16 18:59 06:59 18:59 Intake Total 311.333 809.667 570.243 Balance 311.333 809.667 570.243 Weight 93.4 kg Intake: IV 60 160 Heparin Sodium,Porcine/ 60 160 D5w Pmx 25,000 unit In Dextrose/Water 1 500ml. bag @ 10.25 UNITS/KG/HR 20.08 mls/hr IV .Q24H [facility] Rx#:[id number] Intake, IV Titration 71.333 409.667 90.243 Amount Heparin Sodium,Porcine/ 71.333 409.667 90.243 D5w Pmx 25,000 unit In Dextrose/Water 1 500ml. bag @ 10.25 UNITS/KG/HR 20.08 mls/hr IV .Q24H [facility] Rx#:[id number] Oral 180 240 480 - Exam PHYSICAL EXAMINATION: HEENT: Head is atraumatic, normocephalic. Pupils equal, round. Neck is supple. There is no elevated jugular venous pressure. HEART EXAMINATION: R S1 and S2 systolic murmur is heard. CHEST EXAMINATION: Lungs are clear to auscultation and precussion. No chest wall tenderness is noted on palpation or with deep breathing. ABDOMEN: Soft, nontender. Bowel sounds are heard. No organomegaly noted. EXTREMITIES: 2+ peripheral pulses with no evidence of peripheral edema and no calf tenderness noted. NEUROLOGIC patient is awake, alert and oriented -3. - Labs CBC & Chem 7: 09/03/16 05:38 09/03/16 05:38 Labs: Abnormal Lab Results - Last 24 Hours (Table) 09/02/16 09/02/16 09/02/16 Range/Units 15:47 16:24 20:54 Hgb (13.0-17.5) gm/dL Hct (39.0-53.0) % Plt Count (150-450) k/uL APTT (22.0-30.0) sec D-Dimer 0.69 H (<0.60) mg/L FEU BUN (9-20) mg/dL Glucose (74-99) mg/dL POC Glucose (mg/dL) 112 H 109 H (75-99) mg/dL AST (17-59) U/L ALT (21-72) U/L HDL Cholesterol (40-60) mg/dL 09/03/16 09/03/16 09/03/16 Range/Units 05:38 05:38 05:47 Hgb 12.8 L (13.0-17.5) gm/dL Hct 37.5 L (39.0-53.0) % Plt Count 137 L (150-450) k/uL APTT 32.8 H (22.0-30.0) sec D-Dimer (<0.60) mg/L FEU BUN 34 H (9-20) mg/dL Glucose 103 H (74-99) mg/dL POC Glucose (mg/dL) (75-99) mg/dL AST 15 L (17-59) U/L ALT 14 L (21-72) U/L HDL Cholesterol 32 L (40-60) mg/dL 09/03/16 09/03/16 Range/Units 06:01 11:49 Hgb (13.0-17.5) gm/dL Hct (39.0-53.0) % Plt Count (150-450) k/uL APTT (22.0-30.0) sec D-Dimer (<0.60) mg/L FEU BUN (9-20) mg/dL Glucose (74-99) mg/dL POC Glucose (mg/dL) 105 H 130 H (75-99) mg/dL AST (17-59) U/L ALT (21-72) U/L HDL Cholesterol (40-60) mg/dL Assessment and Plan Plan: Assessment and plan #1 chest pain with some atypical features for coronary artery disease. EKG shows normal sinus rhythm with inferior lateral ST-T wave changes. Patient has been noted to have these changes on prior EKGs. Troponins 0.017, 0.0-7, 0.014. #2 small to moderate pericardial effusion on CT #3 hypertension #4 hyperlipidemia #5 diabetes #6 Parkinson's #7 History of TIA and CVAs #8nicotine dependence #9 COPD Plan From cardiology's perspective, patient may be able to be discharged home today. We will make him a follow-up appointment to see Dr. Chew in the office post discharge. DNP note has been reviewed, I agree with a documented findings and plan of care. Patient was seen and examined.
[2016-09-03 16:34] LABS: Glucose,Whole Blood 111 mg/dL (75-99)
[2016-09-03 20:50] LABS: Glucose,Whole Blood 94 mg/dL (75-99)
[2016-09-03] MEDS: DIVALPROEX ER 500 MG TAB.ER.24H PO SCH (21:50)
[2016-09-03] MEDS: risperiDONE 2 MG TAB PO SCH (21:50)
[2016-09-03] MEDS: amLODIPine 5 MG TAB PO SCH (21:50)
[2016-09-03] MEDS: PRAVASTATIN SODIUM 20 MG TAB PO SCH (21:50)
[2016-09-03] MEDS: DULoxetine HCL 60 MG CAPSULE.DR PO SCH (21:51)
[2016-09-03] MEDS: LISINOPRIL 10 MG TAB PO SCH (21:51)
[2016-09-04 06:08] LABS: Glucose,Whole Blood 102 mg/dL (75-99)
[2016-09-04 06:42] LABS: CH 29.6; CHCM 34.9; HCT 36.5 % (39.0-53.0); HGB 12.6 gm/dL (13.0-17.5); MCH 29.4 pg (25.0-35.0); MCHC 34.5 g/dL (31.0-37.0); MCV 85.3 fL (80.0-100.0); Mean Platelet Volume 8.5; RBC 4.28 m/uL (4.30-5.90); RDW 13.4 % (11.5-15.5); WBC 8.9 k/uL (3.8-10.6)
[2016-09-04 06:50] LABS: ALT 21 U/L (21-72); AST 10 U/L (17-59); Alkaline Phosphatase 63 U/L (38-126); Anion Gap 7 mmol/L; Blood Urea Nitrogen 25 mg/dL (9-20); Calcium 8.5 mg/dL (8.4-10.2); Carbon Dioxide 32 mmol/L (22-30); Chloride 104 mmol/L (98-107); Glucose 96 mg/dL (74-99); Non-African American GFR(MDRD) >60 (>60 ml/min/1.73 sqM); Potassium 3.4 mmol/L (3.5-5.1); Sodium 143 mmol/L (137-145); Total Bilirubin 0.5 mg/dL (0.2-1.3); Total Protein 6.3 g/dL (6.3-8.2)
[2016-09-04] MEDS: ASPIRIN 325 MG TAB PO SCH (08:18)
[2016-09-04] MEDS: TERAZOSIN 1 MG CAP PO SCH (08:18)
[2016-09-04] MEDS: CARBIDOPA-LEVODOPA 25-100 MG 1 EACH TAB PO SCH (08:18)
[2016-09-04 12:52] VITALS: BP 162/99; PULSE 68; TEMP 98
--- NOTE | 2016-09-20 13:40 | P.DS ---
Providers Date of admission: 09/02/16 03:17 Expected date of discharge: 09/04/16 Attending physician: Scott Dougherty Primary care physician: Flora Francis [facility] Course: This is a 7-year-old male one of Dr. Francis with a previous medical history significant for hypertension and hypertensive cardio vascular disease, history of coronary artery disease post microinfarction back in 2011 without any left heart catheterization, history of TIA with a cerebrovascular accident back in 2008 with left-sided hand weakness and mild speech residual, hyperlipidemia, are considered disease, chronic tobacco use and dependence with COPD, patient was seen by about a week ago and he was having symptoms of possible TIA versus stroke and he was having issues with the left eye, at that time he was seen her and he was supposed to follow-up with her as an outpatient next week however the patient was laying down in bed yesterday watching TV at around 6:00 in the evening when he developed to have mid sternal chest pressure radiating to the neck associated with no shortness of breath, has no nausea vomiting or diarrhea at that time. Patient ended up coming to the emergency department today in the morning because of recurrent chest pain and he was admitted to the hospital for evaluation for unstable angina his initial cardiac enzymes are negative. Was placed on heparin drip, patient has been falling quite a bit he has not been caring for himself quite a bit he has significant bruising on his left lower extremity he did not have any closed head trauma over the last few days. 09/03: He has been seen by cardiology and underwent Lexiscan stress test which was negative. Echocardiogram revealed severe concentric left ventricle hypertrophy with EF 50-55%, LA severely dilated at greater than 40, mild aortic valve sclerosis, mild mitral regurgitation, mild tricuspid regurgitation. No pulmonary hypertension. Small generalized pericardial effusion present. Patient is requesting medicine for his tremors and Sinemet started twice daily. Depakote level is 68.9.. Anticipate possible discharge by Tuesday. 09/04: Patient is discharged home in stable condition. Discharge diagnoses: 1. Unstable angina in a patient with a prior history of CAD with IA. 2. Small to moderate pericardial effusion and cardiology. 2. Hypertension and hypertensive cardiovascular disease. 3. Hyperlipemia. 4. Reported history of diabetes mellitus type 2. Patient is not taking any medication at this time 5. History of CVA and TIA. 6. Possible Parkinson disease. 7. Tobacco use and dependence. 8. COPD. 9. Right pulmonary nodule. 10. Nonobstructing kidney stone. 11. Acute kidney injury with chronic kidney disease stage II. 12. Possible DISH. 13. Enlarged prostate. 14. Bipolar disorder. Discharge plan: Home Impression and plan of care have been directed as dictated by the signing physician. Gina Cade nurse practitioner acting as scribe for signing physician. CC: Dr Flora Francis Patient Condition at Discharge: Good Plan - Discharge Summary New Discharge Prescriptions: Aspirin EC [Ecotrin Low Dose] 81 mg PO DAILY #30 tablet. Carbidopa-Levodopa 25-100 mg [Sinemet 25-100 mg] 1 each PO BID #60 tab Nitroglycerin Sl Tabs [Nitrostat] 0.4 mg SUBLINGUAL Q5M PRN #25 tab PRN Reason: Chest Pain Discharge Medication List risperiDONE [RisperDAL] 2 mg PO HS 05/22/14 [History] DULoxetine HCL [Cymbalta] 120 mg PO HS 07/31/15 [History] Pravastatin Sodium [Pravachol] 20 mg PO HS 07/31/15 [History] Albuterol Inhaler [Ventolin Hfa Inhaler] 2 puff INHALATION RT-Q6H PRN 09/01/16 [ History] Divalproex ER [Depakote ER] 1,000 mg PO HS 09/01/16 [History] Lisinopril [Zestril] 10 mg PO HS 09/01/16 [History] Terazosin [Hytrin] 1 mg PO [facility] 09/01/16 [History] amLODIPine [Norvasc] 5 mg PO HS 09/01/16 [History] Aspirin EC [Ecotrin Low Dose] 81 mg PO DAILY #30 tablet. 09/04/16 [Rx] Carbidopa-Levodopa 25-100 mg [Sinemet 25-100 mg] 1 each PO BID #60 tab 09/04/16 [Rx] Nitroglycerin Sl Tabs [Nitrostat] 0.4 mg SUBLINGUAL Q5M PRN #25 tab 09/04/16 [Rx ] Follow up Appointment(s)/Referral(s): Flora Francis MD [Primary Care Provider] - 1-2 days Raimundo Chew MD [STAFF PHYSICIAN] - 1 Week Discharge Disposition: HOME SELF-CARE
== END 2016-09-04 13:53 | disposition home or self-care (01) | DRG 303 ==
LOC: EC 23:24 → 6SEL 09-02 03:17
PROVIDERS: ADMIT Internal Medicine; ATTEND Internal Medicine
PROC: 4A12XM4 Monitoring of Cardiac Stress, External Approach (ICD-10-PCS; principal; 2016-09-03)
PROC: 3E033HZ Introduction of Radioactive Substance into Peripheral Vein, Percutaneous Approach (ICD-10-PCS; 2016-09-03)
PROC: C22G1ZZ Tomographic (Tomo) Nuclear Medicine Imaging of Myocardium using Technetium 99m (Tc-99m) (ICD-10-PCS; 2016-09-03)
DX: I25.110 Atherosclerotic heart disease of native coronary artery with unstable angina pectoris (principal); N17.9 Acute kidney failure, unspecified; I31.3 Pericardial effusion (noninflammatory); I13.10 Hypertensive heart and chronic kidney disease without heart failure, with stage 1 through stage 4 chronic kidney disease, or unspecified chronic kidney disease; E11.22 Type 2 diabetes mellitus with diabetic chronic kidney disease; I69.954 Hemiplegia and hemiparesis following unspecified cerebrovascular disease affecting left non-dominant side; G20 Parkinson's disease; J44.9 Chronic obstructive pulmonary disease, unspecified; N18.2 Chronic kidney disease, stage 2 (mild); M48.14 Ankylosing hyperostosis [Forestier], thoracic region; R00.0 Tachycardia, unspecified; E03.9 Hypothyroidism, unspecified; I08.3 Combined rheumatic disorders of mitral, aortic and tricuspid valves; R91.1 Solitary pulmonary nodule; N20.0 Calculus of kidney; E78.5 Hyperlipidemia, unspecified; I69.928 Other speech and language deficits following unspecified cerebrovascular disease; I69.918 Other symptoms and signs involving cognitive functions following unspecified cerebrovascular disease; S80.12XA Contusion of left lower leg, initial encounter; H53.8 Other visual disturbances; H54.7 Unspecified visual loss; I25.2 Old myocardial infarction; N40.0 Benign prostatic hyperplasia without lower urinary tract symptoms; M19.041 Primary osteoarthritis, right hand; M19.042 Primary osteoarthritis, left hand; F31.9 Bipolar disorder, unspecified; R29.6 Repeated falls; F17.210 Nicotine dependence, cigarettes, uncomplicated; Z80.3 Family history of malignant neoplasm of breast; Z71.6 Tobacco abuse counseling; Z91.81 History of falling; Z79.899 Other long term (current) drug therapy; Z90.49 Acquired absence of other specified parts of digestive tract; Z86.79 Personal history of other diseases of the circulatory system; Z82.49 Family history of ischemic heart disease and other diseases of the circulatory system; Z80.9 Family history of malignant neoplasm, unspecified
CPT/HCPCS: 36415; 71020; 71275; 75635; 78452; 80053; 80061; 80164; 82550; 82553; 83036; 83735; 83970; 84484; 85025; 85027; 85379; 85610; 85652; 85730; 93005; 93017; 93306; 94640; 96365; 96366; 96376; 99291

== ENCOUNTER 2016-10-11 15:39 | Inpatient (IN) | payer MEDICARE ==
[2016-10-11 15:52] LABS: Glucose,Whole Blood 105 mg/dL (75-99)
[2016-10-11] MEDS ORDERED: ACETAMINOPHEN TAB 500 MG TAB PO STA (16:04)
[2016-10-11] MEDS ORDERED: SODIUM CHLORIDE 0.9% 1,000 ML IV STA ×2 (16:04)
[2016-10-11] MEDS ORDERED: KETOROLAC 30 MG/ML 1 ML VIAL IVP STA (16:05)
[2016-10-11] MEDS ORDERED: IPRATROPIUM-ALBUTEROL 3 ML NEB INHALATION STA (16:06)
[2016-10-11] MEDS ORDERED: LEVOFLOXACIN 750MG-D5W PMX 750 MG in DEXTROSE/WATER 1 150ML.BAG IVPB STA (16:07)
--- NOTE | 2016-10-11 16:11 | ED ---
General Adult HPI - General Chief complaint: Weakness Stated complaint: Weakness Time Seen by Provider: 10/11/16 15:59 Source: patient, EMS Mode of arrival: EMS - History of Present Illness Initial comments: This 61-year-old white male presents to the ER with apparent weakness. He apparently fell this morning but did not sustain any injuries. He did not hit his head per report. The is not present currently but he does present via EMS. He apparently was very weak in the had to help him back to bed. He does have a history of multiple medical problems including previous strokes with subsequent aphasia. He is able to answer some questions but primarily yes and no questions and will follow commands but history certainly is limited. The daughter later does show up but not able to give much history. He presents with a fever 103.4. He does complain of feeling short of breath but denies any cough. He denies any chest pain or abdominal pain. He denies any nausea vomiting or diarrhea or constipation. He denies any urinary symptoms. No other identifiable complaints or modifying factors. - Related Data Home Medications Medication Instructions Recorded Confirmed risperiDONE [RisperDAL] 2 mg PO QAM 05/22/14 09/01/16 DULoxetine HCL [Cymbalta] 120 mg PO HS 07/31/15 09/01/16 Carbidopa-Levodopa 25-100 mg 1 tab PO BID 10/11/16 10/11/16 [Sinemet 25-100 mg] Divalproex Sodium [Depakote] 500 mg PO BID 10/11/16 10/11/16 Lisinopril 40 mg PO QAM 10/11/16 10/11/16 Pravastatin Sodium [Pravachol] 40 mg PO HS 10/11/16 10/11/16 Terazosin [Hytrin] 4 mg PO BID 10/11/16 10/11/16 risperiDONE [RisperDAL] 4 mg PO HS 10/11/16 10/11/16 Previous Rx's Medication Instructions Recorded Aspirin EC [Ecotrin Low Dose] 81 mg PO DAILY #30 tablet. 09/04/16 Allergies Allergy/AdvReac Type Severity Reaction Status Date / Time No Known Allergies Allergy Verified 09/01/16 23:45 Review of Systems ROS Statement: Those systems with pertinent positive or pertinent negative responses have been documented in the HPI. ROS Other: All systems not noted in ROS Statement are negative. Past Medical History Past Medical History: Atrial Fibrillation, COPD, CVA/TIA, Hyperlipidemia, Hypertension, Myocardial Infarction ([place]), Musculoskeletal Disorder, Neurologic Disorder, Osteoarthritis (OA), Prostate Disorder, Thyroid Disorder Additional Past Medical History / Comment(s): CVA- slight R sided weakness and thought process impaired at times, parkinson's -pt states they still have not diagnosed if he has it or not, hypothryoid, arthritis bilateral hands. Last Myocardial Infarction Date:: 2011 History of Any Multi-Drug Resistant Organisms: None Reported Past Surgical History: Appendectomy Additional Past Surgical History / Comment(s): right foot toe surgery as a child , pt denies ever having cardiac cath. Past Anesthesia/Blood Transfusion Reactions: No Reported Reaction Past Psychological History: Bipolar Additional Psychological History / Comment(s): Pt resides with his spouse. He uses a walker to ambulate. He no longer drives. Spouse drives. His manages his medications. No home care. Smoking Status: Current every day smoker (Patient smokes about a pack every day for the past 3 years, he denies any marijuana use he denies any street drug use or abuse, he denies any alcohol abuse.) Past Alcohol Use History: None Reported Additional Past Alcohol Use History / Comment(s): Pt started smoking in 1968 and is about 1 ppd smoker. Past Drug Use History: None Reported - Past Family History Father Family Medical History: Cancer (Father in his 70s from some sort of cancer did not recall the type) Additional Family Medical History / Comment(s): Pt states his father was healthy and at the age of 80yrs. Mother Family Medical History: Cancer, Vascular Disorder (Mother at age of 60 from a brain aneurysm.) Additional Family Medical History / Comment(s): Mother of breast cancer at the age of 41 yrs. Brother(s) Family Medical History: No Reported History (Patient has 3 half-brothers no major medical problems) General Exam - General Exam Comments Initial Comments: GENERAL: The patient is well nourished and well hydrated. VITAL SIGNS: Heart rate, blood pressure, respiratory rate reviewed as recorded in nurse's notes. He has a temperature of 103.4. His oxygenation is low at 93% . EYES: Pupils are round and reactive. Extraocular movements are intact. No conjunctival / lid redness or swelling. ENT: No external evidence of injury, swelling, or ecchymosis. Airway is patent. Throat is clear. NECK: Nontender. No swelling or evidence of injury. No subcutaneous emphysema. Trachea is midline. No thyroid mass. HEART: Regular rate and rhythm. Good peripheral pulses. LUNGS/CHEST: Breath sounds clear and equal bilaterally. No rales, rhonchi, or wheezes. No ecchymosis, subcutaneous emphysema, or tenderness. ABDOMEN: Abdomen soft without tenderness. No palpable masses or organomegaly. No peritoneal signs. No abdominal wall swelling or ecchymosis. EXTREMITIES: No extremity tenderness. Normal muscle tone and function. No thoracolumbar tenderness. NEUROLOGIC: Sensation is grossly intact. Cranial nerve exam reveals face is symmetrical, tongue is midline, speech is clear. He does have an aphasia and only answers yes or no questions for me. He does have some chronic right-sided weakness. SKIN: No abrasions or ecchymosis is noted. No induration or masses noted. PSYCHIATRIC: Alert and oriented. Appropriate behavior and judgment. Course Vital Signs 10/11/16 10/11/16 10/11/16 15:44 16:57 17:00 Temperature 103.4 F H 102.6 F H Pulse Rate 97 90 93 Respiratory 16 16 Rate Blood Pressure 183/90 153/78 O2 Sat by Pulse 93 L 96 Oximetry 10/11/16 10/11/16 17:07 17:20 Temperature 101.2 F H Pulse Rate 95 93 Respiratory 16 Rate Blood Pressure 141/74 O2 Sat by Pulse 96 Oximetry Medical Decision Making - Medical Decision Making The patient was seen and examined. All diagnostics were reviewed. An EKG was done and shows a normal sinus rhythm at a rate of 94. There is evidence of left ventricular hypertrophy with repolarization abnormality. There is some ST- T wave changes noted diffusely that is worse than EKG compared to 08/26/2016. The CT interval is 140, QRS duration is 90, and the QTc interval is 470. The chest x-ray showed some pleural thickening which is changed from previous. There is no signs of congestive heart failure. Is felt that this could potentially be related to pneumonia and this would clinically correlate. Laboratories reviewed. He received some Toradol as well as Tylenol and his fever did come down. He also received IV antibiotics. Is felt as though he would require admission to the hospital. Case is discussed with internal medicine and they're agreeable and are currently evaluating him in the ER. - Lab Data Result diagrams: 10/11/16 15:07 10/11/16 15:07 Lab Results 10/11/16 10/11/16 10/11/16 Range/Units 15:07 15:07 15:07 WBC 10.7 H (3.8-10.6) k/uL RBC 4.93 (4.30-5.90) m/uL Hgb 14.5 (13.0-17.5) gm/dL Hct 42.2 (39.0-53.0) % MCV 85.6 (80.0-100.0) fL MCH 29.5 (25.0-35.0) pg MCHC 34.4 (31.0-37.0) g/dL RDW 13.9 (11.5-15.5) % Plt Count 118 L (150-450) k/uL Neutrophils % 89 % Lymphocytes % 5 % Monocytes % 5 % Eosinophils % 0 % Basophils % 0 % Neutrophils # 9.5 H (1.3-7.7) k/uL Lymphocytes # 0.6 L (1.0-4.8) k/uL Monocytes # 0.5 (0-1.0) k/uL Eosinophils # 0.0 (0-0.7) k/uL Basophils # 0.0 (0-0.2) k/uL PT (9.0-12.0) sec INR (<1.1) APTT (22.0-30.0) sec Sodium 139 (137-145) mmol/L Potassium 3.1 L (3.5-5.1) mmol/L Chloride 93 L (98-107) mmol/L Carbon Dioxide 33 H (22-30) mmol/L Anion Gap 13 mmol/L BUN 24 H (9-20) mg/dL Creatinine 1.30 H (0.66-1.25) mg/dL Est GFR (MDRD) Af Amer >60 (>60 ml/min/1.73 sqM) Est GFR (MDRD) Non-Af 56 (>60 ml/min/1.73 sqM) Glucose 105 H (74-99) mg/dL POC Glucose (mg/dL) (75-99) mg/dL POC Glu Park Keeper ID Plasma Lactic Acid Tylor 2.3 H* (0.7-2.0) mmol/L Calcium 8.9 (8.4-10.2) mg/dL Total Bilirubin 1.3 (0.2-1.3) mg/dL AST 43 (17-59) U/L ALT 26 (21-72) U/L Alkaline Phosphatase 72 (38-126) U/L Total Protein 7.1 (6.3-8.2) g/dL Albumin 4.0 (3.5-5.0) g/dL Urine Color Urine Appearance (Clear) Urine pH (5.0-8.0) Ur Specific D[place]inda (1.001-1.035) Urine Protein (Negative) Urine Glucose (UA) (Negative) Urine Ketones (Negative) Urine Blood (Negative) Urine Nitrite (Negative) Urine Bilirubin (Negative) Urine Urobilinogen (<2.0) mg/dL Ur Leukocyte Esterase (Negative) Urine RBC (0-5) /hpf Urine WBC (0-5) /hpf Amorphous Sediment (None) /hpf Hyaline Casts (0-2) /lpf Granular Casts (0) /lpf Urine Mucus (None) /hpf Valproic Acid 48.0 ug/mL 10/11/16 10/11/16 10/11/16 Range/Units 15:07 15:07 15:46 WBC (3.8-10.6) k/uL RBC (4.30-5.90) m/uL Hgb (13.0-17.5) gm/dL Hct (39.0-53.0) % MCV (80.0-100.0) fL MCH (25.0-35.0) pg MCHC (31.0-37.0) g/dL RDW (11.5-15.5) % Plt Count (150-450) k/uL Neutrophils % % Lymphocytes % % Monocytes % % Eosinophils % % Basophils % % Neutrophils # (1.3-7.7) k/uL Lymphocytes # (1.0-4.8) k/uL Monocytes # (0-1.0) k/uL Eosinophils # (0-0.7) k/uL Basophils # (0-0.2) k/uL PT 11.4 (9.0-12.0) sec INR 1.1 (<1.1) APTT 27.7 (22.0-30.0) sec Sodium (137-145) mmol/L Potassium (3.5-5.1) mmol/L Chloride (98-107) mmol/L Carbon Dioxide (22-30) mmol/L Anion Gap mmol/L BUN (9-20) mg/dL Creatinine (0.66-1.25) mg/dL Est GFR (MDRD) Af Amer (>60 ml/min/1.73 sqM) Est GFR (MDRD) Non-Af (>60 ml/min/1.73 sqM) Glucose (74-99) mg/dL POC Glucose (mg/dL) 105 H (75-99) mg/dL POC Glu Park Keeper ID Erik Block Plasma Lactic Acid Tylor (0.7-2.0) mmol/L Calcium (8.4-10.2) mg/dL Total Bilirubin (0.2-1.3) mg/dL AST (17-59) U/L ALT (21-72) U/L Alkaline Phosphatase (38-126) U/L Total Protein (6.3-8.2) g/dL Albumin (3.5-5.0) g/dL Urine Color Yellow Urine Appearance Cloudy (Clear) Urine pH 5.5 (5.0-8.0) Ur Specific D[place]inda 1.018 (1.001-1.035) Urine Protein 1+ H (Negative) Urine Glucose (UA) Negative (Negative) Urine Ketones Negative (Negative) Urine Blood Moderate H (Negative) Urine Nitrite Negative (Negative) Urine Bilirubin Negative (Negative) Urine Urobilinogen <2.0 (<2.0) mg/dL Ur Leukocyte Esterase Negative (Negative) Urine RBC 2 (0-5) /hpf Urine WBC 2 (0-5) /hpf Amorphous Sediment Occasional H (None) /hpf Hyaline Casts 9 H (0-2) /lpf Granular Casts 12 (0) /lpf Urine Mucus Few H (None) /hpf Valproic Acid ug/mL Disposition Clinical Impression: Hospital-acquired pneumonia, Fever, Lactic acidosis, Weakness, Hypokalemia, History of CVA (cerebrovascular accident), Hypochloremia, Hypokalemia Disposition: ADMITTED IP TO THIS [facility] Condition: Fair Time of Disposition: 17:45 Decision Date: 10/11/16 Decision Time: 17:45
[2016-10-11 16:25] LABS: Basophils % (A) 0 %; CH 30.1; CHCM 35.3; Eosinophils % (A) 0 %; HCT 42.2 % (39.0-53.0); HDW 3.05; HGB 14.5 gm/dL (13.0-17.5); Luc # (Auto) 0.06; Luc % (Auto) 1; Lymphocytes # (A) 0.6 k/uL (1.0-4.8); Lymphocytes % (A) 5 %; MCH 29.5 pg (25.0-35.0); MCHC 34.4 g/dL (31.0-37.0); MCV 85.6 fL (80.0-100.0); Mean Platelet Volume 8.5; Monocytes # (A) 0.5 k/uL (0-1.0); Monocytes % (A) 5 %; Neutrophils # (A) 9.5 k/uL (1.3-7.7); Neutrophils % (A) 89 %; RBC 4.93 m/uL (4.30-5.90); RDW 13.9 % (11.5-15.5); WBC 10.7 k/uL (3.8-10.6); WBC (Perox) 10.45
[2016-10-11 16:29] LABS: Amorphous Sediment,Urine Occasional /hpf; Appearance,Urine Cloudy (Clear); Bilirubin,Urine Negative (Negative); Glucose,Urine (UA) Negative (Negative); Granular Casts,Urine 12 /lpf (0); Ketones,Urine Negative (Negative); Leukocyte Esterase,Urine Negative (Negative); Mucus,Urine Few /hpf; Nitrite,Urine Negative (Negative); PH, Urine 5.5 (5.0-8.0); Particle Count 13227; Protein,Urine 1+ (Negative); RBC,Urine 2 /hpf (0-5); Specific Gravity,Urine 1.018 (1.001-1.035); UA Billing (MACRO vs. MICRO) MICRO; Urobilinogen,Urine <2.0 mg/dL (<2.0); WBC,Urine 2 /hpf (0-5)
[2016-10-11 16:33] LABS: ALT 26 U/L (21-72); AST 43 U/L (17-59); Alkaline Phosphatase 72 U/L (38-126); Anion Gap 13 mmol/L; Blood Urea Nitrogen 24 mg/dL (9-20); Calcium 8.9 mg/dL (8.4-10.2); Carbon Dioxide 33 mmol/L (22-30); Chloride 93 mmol/L (98-107); Glucose 105 mg/dL (74-99); Non-African American GFR(MDRD) 56 (>60 ml/min/1.73 sqM); Potassium 3.1 mmol/L (3.5-5.1); Sodium 139 mmol/L (137-145); Total Bilirubin 1.3 mg/dL (0.2-1.3); Total Protein 7.1 g/dL (6.3-8.2)
[2016-10-11 16:46] LABS: INR 1.1 (<1.1); Partial Thromboplastin Time 27.7 sec (22.0-30.0); Prothrombin Time 11.4 sec (9.0-12.0)
--- NOTE | 2016-10-11 17:01 | XR ---
EXAMINATION TYPE: XR chest 2V DATE OF EXAM: 10/11/2016 COMPARISON: 09/02/2016 HISTORY: Weakness TECHNIQUE: Frontal and lateral views of the chest are obtained. FINDINGS: Heart appears enlarged. There is slight blunting of costophrenic angles. There are no halima r masses. There is no heart failure. There are chest leads. There are chest leads. IMPRESSION: There is evidence for new minimal pleural reaction or fluid compared to last exam. Cardi omegaly. No gross heart failure.
[2016-10-11] MEDS ORDERED: POTASSIUM CHLORIDE 20 MEQ, LIDOCAINE 2% INJ 20 MG in SODIUM CHLORIDE 0.9% 100 ML IVPB ONE (17:02)
[2016-10-11] MEDS ORDERED: PIPERACILLIN-TAZOBACTAM 3.375 GM in DEXTROSE/WATER 1 50ML.BAG IVPB STA (17:12)
[2016-10-11] MEDS ORDERED: IV VANCOMYCIN PER PHARMACY 1 EACH MISC MISCELLANE PRN (17:13)
[2016-10-11] MEDS ORDERED: VANCOMYCIN 1,500 MG in SODIUM CHLORIDE 0.9% 250 ML IVPB STA (17:13)
--- NOTE | 2016-10-11 17:18 | CT ---
EXAMINATION TYPE: CT brain wo con DATE OF EXAM: 10/11/2016 COMPARISON: 02/04/2010 HISTORY: Weakness and history of stroke. CT DLP: 1177.00 mGycm Automated exposure control for dose reduction was used. FINDINGS: There is diffuse cerebral cortical atrophy. There is extensive patchy hypodensity in the periventricu lar white matter. There is no mass effect nor midline shift. There is no sign of intracranial hemorrh age. There is probably old 2 x 1 cm lacunar infarct in the left internal capsule at the genu. IMPRESSION: Cerebral atrophy and chronic small vessel ischemia. There is progression compared to old exam. Old le ft internal capsule infarct.
[2016-10-11] MEDS ORDERED: PNEUMONIA PROTOCOL UTILIZED 1 EACH MISC PO PRN (17:46)
[2016-10-11] MEDS ORDERED: IPRATROPIUM-ALBUTEROL 3 ML NEB INHALATION PRN (17:46)
[2016-10-11] MEDS ORDERED: IBUPROFEN 400 MG TAB PO PRN (17:53)
[2016-10-11] MEDS ORDERED: NITROGLYCERIN SL TABS 0.4 MG TAB SUBLINGUAL PRN (17:54)
--- NOTE | 2016-10-11 18:40 | P.HPIM ---
History of Present Illness H&P Date: 10/11/16 Chief Complaint: Possible gram-negative pneumonia. This is a 7-year-old male one of Dr. Francis with a previous medical history significant for hypertension and hypertensive cardiovascular disease, history of coronary artery disease post microinfarction back in 2011 without any left heart catheterization, history of TIA with a cerebrovascular accident back in 2008 with right-sided hand weakness and mild speech residual, hyperlipidemia, patient was recently seen by our service back in August 2016 after he was admitted for chest pain and was seen and evaluated by cardiology apparently patient was in his usual state of health until the past 24 hours when he developed to have a significant fever and chills without any other symptoms patient denies any headache at this point in time he has no visual diligently has no chest pain he does complain of weak cough without any sore throat. Patient ended up coming to the ER at [facility] because of that and he said pressure was elevated at 13.5 patient did receive Tylenol as well as IV fluid and he had a chest x-ray that did not show any evidence of acute infiltrate however there were some reaction the left and right pleural space without any heart heart failure or acute infiltrate, patient was started on IV antibiotic for possible gram-negative pneumonia since the patient wasn't Hospital about less than 6 weeks ago, he was given vancomycin and Zosyn and Levaquin and he was admitted to the hospital, pulmonary consultation was obtained from Dr. SAMIR Reece, blood cultures as well as sputum cultures were obtained. Review of Systems Constitutional: Reports fever, Reports malaise, Reports weakness, Denies anorexia, Denies chronic pain, Denies lethargy, Denies weight gain, Denies weight loss Eyes: denies blurred vision, denies bulging eye, denies decreased vision Ears: deny: decreased hearing Ears, nose, mouth and throat: Denies dysphagia, Denies neck lump, Denies swelling in throat, Denies sore throat Cardiovascular: Denies chest pain, Denies decreased exercise tolerance, Denies dyspnea on exertion, Denies high blood pressure, Denies phlebitis, Denies rapid heart beat, Denies shortness of breath, Denies syncope Respiratory: Reports congestion, Reports cough with sputum, Denies dyspnea, Denies home oxygen, Denies sleep apnea, Denies snoring, Denies wheezing Gastrointestinal: Denies abdominal pain, Denies bloating, Denies BRBPR, Denies early satiety, Denies heartburn, Denies melena, Denies nausea, Denies vomiting Genitourinary: Denies dysuria, Denies nocturia, Denies polyuria Musculoskeletal: Denies myalgias Musculoskeletal: absent: ankle pain, ankle stiffness, ankle swelling, elbow pain , elbow stiffness, elbow swelling, foot pain, foot stiffness, foot swelling, hand pain, hand stiffness, hand swelling, hip pain, hip stiffness, hip swelling , knee pain, knee stiffness, knee swelling, shoulder pain, shoulder stiffness, shoulder swelling, wrist pain, wrist stiffness, wrist swelling Integumentary: Denies pruritus, Denies rash Neurological: Reports change in speech, Reports weakness, Denies numbness Psychiatric: Denies anxiety, Denies depression Endocrine: Denies fatigue, Denies weight change Past Medical History Past Medical History: Atrial Fibrillation, COPD, CVA/TIA, Hyperlipidemia, Hypertension, Myocardial Infarction (LA), Musculoskeletal Disorder, Neurologic Disorder, Osteoarthritis (OA), Prostate Disorder, Thyroid Disorder Additional Past Medical History / Comment(s): CVA- slight R sided weakness and thought process impaired at times, parkinson's -pt states they still have not diagnosed if he has it or not, hypothryoid, arthritis bilateral hands. Last Myocardial Infarction Date:: 2011 History of Any Multi-Drug Resistant Organisms: None Reported Past Surgical History: Appendectomy Additional Past Surgical History / Comment(s): right foot toe surgery as a child , pt denies ever having cardiac cath. Past Anesthesia/Blood Transfusion Reactions: No Reported Reaction Past Psychological History: Bipolar Additional Psychological History / Comment(s): Pt resides with his spouse. He uses a walker to ambulate. He no longer drives. Spouse drives. His manages his medications. No home care. Smoking Status: Current every day smoker (Patient smokes about a pack every day for the past 3 years, he denies any marijuana use he denies any street drug use or abuse, he denies any alcohol abuse.) Past Alcohol Use History: None Reported Additional Past Alcohol Use History / Comment(s): Pt started smoking in 1968 and is about 1 ppd smoker. Past Drug Use History: None Reported - Past Family History Father Family Medical History: Cancer (Father in his 70s from some sort of cancer did not recall the type) Additional Family Medical History / Comment(s): Pt states his father was healthy and at the age of 80yrs. Mother Family Medical History: Cancer, Vascular Disorder (Mother at age of 60 from a brain aneurysm.) Additional Family Medical History / Comment(s): Mother of breast cancer at the age of 41 yrs. Brother(s) Family Medical History: No Reported History (Patient has 3 half-brothers no major medical problems) Medications and Allergies Home Medications Medication Instructions Recorded Confirmed Type risperiDONE [RisperDAL] 2 mg PO QAM 05/22/14 10/11/16 History DULoxetine HCL [Cymbalta] 120 mg PO HS 07/31/15 10/11/16 History Albuterol Inhaler [Ventolin Hfa 2 puff INHALATION RT-Q4H PRN 10/11/16 10/11/16 History Inhaler] Carbidopa-Levodopa 25-100 mg 1 tab PO TID 10/11/16 10/11/16 History [Sinemet 25-100 mg] Divalproex Sodium [Depakote] 500 mg PO BID 10/11/16 10/11/16 History Lisinopril 40 mg PO QAM 10/11/16 10/11/16 History Nitroglycerin Sl Tabs [Nitrostat] 0.4 mg SUBLINGUAL Q5M PRN 10/11/16 10/11/16 History Pravastatin Sodium [Pravachol] 40 mg PO HS 10/11/16 10/11/16 History Terazosin [Hytrin] 2 mg PO BID 10/11/16 10/11/16 History amLODIPine [Norvasc] 10 mg PO DAILY 10/11/16 10/11/16 History hydrALAZINE HCL [Apresoline] 100 mg PO BID 10/11/16 10/11/16 History risperiDONE [RisperDAL] 4 mg PO HS 10/11/16 10/11/16 History Allergies Allergy/AdvReac Type Severity Reaction Status Date / Time No Known Allergies Allergy Verified 09/01/16 23:45 Physical Exam Vitals: Vital Signs Temp Pulse Resp BP Pulse Ox 10/11/16 18:19 99.5 F 86 18 130/77 96 10/11/16 17:20 101.2 F H 93 16 141/74 96 10/11/16 17:07 95 10/11/16 17:00 93 06/05/17 16:57 102.6 F H 90 16 153/78 96 10/11/16 15:44 103.4 F H 97 16 183/90 93 L Intake and Output 10/11/16 10/11/16 10/11/16 06:59 14:59 22:59 Other: Weight 93.44 kg Patient Weight 10/12/16 06:59 Weight 93.44 kg - Constitutional General appearance: average body habitus, no acute distress - EENT Eyes: anicteric sclerae, EOMI, PERRLA, no ptosis, no scleral icterus, normal appearance ENT: NA/AT, normal oropharynx, no thrush - Neck Neck: no lymphadenopathy, normal ROM, no rigidity, no stridor, no thyromegaly Carotids: bilateral: upstroke delayed Thyroid: bilateral: normal size - Respiratory Respiratory: bilateral: diminished, prolonged expiration, negative: dullness, rales, rhonchi, wheezing - Cardiovascular Rhythm: regular Heart sounds: normal: S1, S2 Abnormal Heart Sounds: no systolic murmur, no rub, no click - Gastrointestinal General gastrointestinal: normal bowel sounds, soft, no splenomegaly, no tenderness, no umbilical hernia, no ventral hernia - Integumentary Integumentary: normal, normal turgor - Neurologic Neurologic: CNII-XII intact, focal deficits - Musculoskeletal Musculoskeletal: generalized weakness, right sided weakness - Psychiatric Psychiatric: A&O x's 3, appropriate affect, intact judgment & insight Results CBC & Chem 7: 10/11/16 15:07 10/11/16 15:07 Labs: Abnormal Lab Results - Last 24 Hours (Table) 10/11/16 10/11/16 10/11/16 Range/Units 15:07 15:07 15:07 WBC 10.7 H (3.8-10.6) k/uL Plt Count 118 L (150-450) k/uL Neutrophils # 9.5 H (1.3-7.7) k/uL Lymphocytes # 0.6 L (1.0-4.8) k/uL Potassium 3.1 L (3.5-5.1) mmol/L Chloride 93 L (98-107) mmol/L Carbon Dioxide 33 H (22-30) mmol/L BUN 24 H (9-20) mg/dL Creatinine 1.30 H (0.66-1.25) mg/dL Glucose 105 H (74-99) mg/dL POC Glucose (mg/dL) (75-99) mg/dL Plasma Lactic Acid Tylor 2.3 H* (0.7-2.0) mmol/L Urine Protein (Negative) Urine Blood (Negative) Amorphous Sediment (None) /hpf Hyaline Casts (0-2) /lpf Urine Mucus (None) /hpf 10/11/16 10/11/16 Range/Units 15:07 15:46 WBC (3.8-10.6) k/uL Plt Count (150-450) k/uL Neutrophils # (1.3-7.7) k/uL Lymphocytes # (1.0-4.8) k/uL Potassium (3.5-5.1) mmol/L Chloride (98-107) mmol/L Carbon Dioxide (22-30) mmol/L BUN (9-20) mg/dL Creatinine (0.66-1.25) mg/dL Glucose (74-99) mg/dL POC Glucose (mg/dL) 105 H (75-99) mg/dL Plasma Lactic Acid Tylor (0.7-2.0) mmol/L Urine Protein 1+ H (Negative) Urine Blood Moderate H (Negative) Amorphous Sediment Occasional H (None) /hpf Hyaline Casts 9 H (0-2) /lpf Urine Mucus Few H (None) /hpf Thrombosis Risk Factor Assmnt - DVT/VTE Prophylaxis DVT/VTE Prophylaxis: Pharmacologic Prophylaxis ordered, Mechanical Prophylaxis ordered Assessment and Plan Plan: Assessment and plan: 1. Possible gram-negative pneumonia. Start the patient on Levaquin and Zosyn, patient did receive a dose of vancomycin the ER as well, culture, sputum culture , oxygen support liters nasal cannula, DuoNeb 3 mg nebulization 4 times every day, pulmonary consultation from Dr. SAMIR Reece. 2. Hypertension and hypertensive cardiovascular disease. Continue patient on lisinopril 40 mg orally once every day, amlodipine 10 mg orally once every day and hydralazine 100 mg orally twice every day. 3. Hyperlipemia. Continue Pravachol 40 mg orally once every day. 4. History of CVA and TIA. Continue aspirin 81 mg orally once every day for secondary stroke prevention along with Pravachol 40 mg orally once every day. 5. Parkinson disease continue Sinemet 25/100 one tablet orally 3 times every day. 6. Tobacco use and dependence. Smoking cessation and counseling an increased risk of CVA, CAD, mellitus. 7. COPD. Patient will be started on Symbicort 160/4.5 g 2 puffs inhalation twice every day, Spiriva HandiHaler 1 capsule inhalation once every day. 8. Right pulmonary nodule. Patient will need to have a computed tomography scan of the chest in 6 months from now. 9. Nonobstructing kidney stone. Stable. 10. Enlarged prostate. Continue Hytrin 1 mg orally once every day. 11. Bipolar disorder. Continue Cymbalta 120 mg orally once every day and Risperdal 4 mg at night and to milligram in the morning. 12. DVT prophylaxis. Lovenox 40 mg subcutaneously every 24 hours. 13. GI prophylaxis. Continue patient on Protonix 40 mg orally once every day. 14. Patient is full code. 15. Admit to inpatient. Estimate a length of stay 2 midnights.
[2016-10-11 19:36] VITALS: BMI 29.4
[2016-10-11] MEDS: hydrALAZINE HCL 50 MG TAB PO SCH (21:30)
[2016-10-11] MEDS: PRAVASTATIN SODIUM 40 MG TAB PO SCH (21:30)
[2016-10-11] MEDS: DIVALPROEX 500 MG TABLET.DR PO SCH (21:30)
[2016-10-11] MEDS: CARBIDOPA-LEVODOPA 25-100 MG 1 EACH TAB PO SCH (21:30)
[2016-10-11] MEDS: TERAZOSIN 2 MG CAP PO SCH (21:30)
[2016-10-11] MEDS: risperiDONE 2 MG TAB PO SCH (21:30)
[2016-10-11] MEDS: DULoxetine HCL 60 MG CAPSULE.DR PO SCH (21:30)
[2016-10-11] MEDS ORDERED: Potassium Replacement Protocol 1 EACH MISC MISCELLANE PRN (23:46)
[2016-10-12] MEDS ORDERED: POTASSIUM CHLORIDE 10 MEQ, LIDOCAINE 2% INJ 10 MG in SODIUM CHLORIDE 0.9% 100 ML IVPB SCH ×3
[2016-10-12] MEDS: PIPERACILLIN-TAZOBACTAM 3.375 GM in DEXTROSE/WATER 1 50ML.BAG IVPB SCH ×3 (00:12→16:49)
[2016-10-12] MEDS: POTASSIUM CHLORIDE ER 20 MEQ TAB.ER PO SCH ×2 (00:36→01:34)
[2016-10-12] MEDS: POTASSIUM CHLORIDE 10 MEQ, LIDOCAINE 2% INJ 10 MG in SODIUM CHLORIDE 0.9% 100 ML IVPB SCH ×3 (04:12→06:20)
[2016-10-12] MEDS ORDERED: VANCOMYCIN 1,250 MG in SODIUM CHLORIDE 0.9% 250 ML IVPB SCH (06:00)
[2016-10-12] MEDS: CARBIDOPA-LEVODOPA 25-100 MG 1 EACH TAB PO SCH ×3 (07:45→22:15)
[2016-10-12] MEDS: risperiDONE 2 MG TAB PO SCH ×2 (07:45→22:15)
[2016-10-12] MEDS: hydrALAZINE HCL 50 MG TAB PO SCH ×2 (07:45→22:15)
[2016-10-12] MEDS: ENOXAPARIN 40 MG/0.4 ML SYRINGE SQ SCH (07:45)
[2016-10-12] MEDS: amLODIPine 10 MG TAB PO SCH (07:46)
[2016-10-12] MEDS: LISINOPRIL 20 MG TAB PO SCH (07:46)
[2016-10-12] MEDS: DIVALPROEX 500 MG TABLET.DR PO SCH ×2 (07:46→22:14)
[2016-10-12] MEDS: ASPIRIN 81 MG CHEW PO SCH (07:47)
[2016-10-12] MEDS: TERAZOSIN 2 MG CAP PO SCH ×2 (07:47→22:15)
[2016-10-12] MEDS: ACETAMINOPHEN TAB 325 MG TAB PO PRN ×3 (07:47→17:51)
--- NOTE | 2016-10-12 08:24 | XR ---
EXAMINATION TYPE: XR chest 2V DATE OF EXAM: 10/12/2016 COMPARISON: Prior chest x-ray 10/11/2016 HISTORY: Pneumonia TECHNIQUE: Frontal and lateral views of the chest are obtained. FINDINGS: Prominent lung volume may be indicative of underlying COPD. The heart is enlarged the alyssa ent is rotated. No pneumothorax or pleural effusion. Pulmonary vascularity and halima not significantly changed. There are overlying cardiac leads. IMPRESSION: Rotated exam. Cardiomegaly.
[2016-10-12] MEDS ORDERED: Potassium Replacement Protocol 1 EACH MISC MISCELLANE PRN (09:47)
[2016-10-12] MEDS ORDERED: POTASSIUM CHLORIDE 10 MEQ in WATER FOR INJECTION 1 100ML.BAG IVPB ONE (10:30)
--- NOTE | 2016-10-12 12:33 | P.PN ---
Subjective This is a 61-year-old male one of Dr. Francis with a previous medical history significant for hypertension and hypertensive cardiovascular disease, history of coronary artery disease post microinfarction back in 2011 without any left heart catheterization, history of TIA with a cerebrovascular accident back in 2008 with right-sided hand weakness and mild speech residual, hyperlipidemia, patient was recently seen by our service back in August 2016 after he was admitted for chest pain and was seen and evaluated by cardiology apparently patient was in his usual state of health until the past 24 hours when he developed to have a significant fever and chills without any other symptoms patient denies any headache at this point in time he has no visual diligently has no chest pain he does complain of weak cough without any sore throat. Patient ended up coming to the ER at [facility] because of that and he said pressure was elevated at 13.5 patient did receive Tylenol as well as IV fluid and he had a chest x-ray that did not show any evidence of acute infiltrate however there were some reaction the left and right pleural space without any heart heart failure or acute infiltrate, patient was started on IV antibiotic for possible gram-negative pneumonia since the patient wasn't Hospital about less than 6 weeks ago, he was given vancomycin and Zosyn and Levaquin and he was admitted to the hospital, pulmonary consultation was obtained from Dr. SAMIR Reece, blood cultures as well as sputum cultures were obtained. 10/12: Patient is laying down in bed he is feeling a bit better today he continues to be somewhat emotional and is crying but he denies any chest pain or any shortness breath he has no coughing no fever or chills he does complain of diarrhea no nausea or vomiting. Objective - Vital Signs Vital signs: Vital Signs Temp 99.6 F 10/12/16 07:00 Pulse 92 10/12/16 08:00 Resp 18 10/12/16 08:00 BP 164/83 10/12/16 07:00 Pulse Ox 95 10/12/16 07:00 Intake & Output 10/11/16 10/12/16 10/12/16 18:59 06:59 18:59 Intake Total 1200 Balance 1200 Weight 95.708 kg Intake: Intake, IV Titration 1200 Amount Piperacillin-Tazobactam 3 50 .375 gm In Dextrose/Water 1 50ml.bag @ 12.5 mls/hr IVPB Q8HR KEVIN Rx#: [id number] Potassium Chloride 10 meq 50 Lidocaine 2% Inj 10 mg In Sodium Chloride 0.9% 100 ml @ 100 mls/hr IVPB Q1HR KEVIN Rx#:[id number] Potassium Chloride 10 meq 200 Lidocaine 2% Inj 10 mg In Sodium Chloride 0.9% 100 ml @ 100 mls/hr IVPB Q1HR KEVIN Rx#:[id number] Potassium Chloride 20 meq 100 Lidocaine 2% Inj 20 mg In Sodium Chloride 0.9% 100 ml @ 55.5 mls/hr IVPB ONCE ONE Rx#:[id number] Sodium Chloride 0.9% 1, 800 000 ml @ 100 mls/hr IV . Q10H STA Rx#:[id number] Other: Voiding Method Toilet Toilet Urinal Urinal # Voids 3 - Exam - Constitutional General appearance: average body habitus, no acute distress - EENT Eyes: anicteric sclerae, EOMI, PERRLA, no ptosis, no scleral icterus, normal appearance ENT: NA/AT, normal oropharynx, no thrush - Neck Neck: no lymphadenopathy, normal ROM, no rigidity, no stridor, no thyromegaly Carotids: bilateral: upstroke delayed Thyroid: bilateral: normal size - Respiratory Respiratory: bilateral: diminished, prolonged expiration, negative: dullness, rales, rhonchi, wheezing - Cardiovascular Rhythm: regular Heart sounds: normal: S1, S2 Abnormal Heart Sounds: no systolic murmur, no rub, no click - Gastrointestinal General gastrointestinal: normal bowel sounds, soft, no splenomegaly, no tenderness, no umbilical hernia, no ventral hernia - Integumentary Integumentary: normal, normal turgor - Neurologic Neurologic: CNII-XII intact, focal deficits - Musculoskeletal Musculoskeletal: generalized weakness, right sided weakness - Psychiatric Psychiatric: A&O x's 3, appropriate affect, intact judgment & insight - Labs CBC & Chem 7: 10/11/16 15:07 10/12/16 08:24 Labs: Abnormal Lab Results - Last 24 Hours (Table) 10/11/16 10/11/16 10/11/16 Range/Units 15:07 15:07 15:07 WBC 10.7 H (3.8-10.6) k/uL Plt Count 118 L (150-450) k/uL Neutrophils # 9.5 H (1.3-7.7) k/uL Lymphocytes # 0.6 L (1.0-4.8) k/uL Potassium 3.1 L (3.5-5.1) mmol/L Chloride 93 L (98-107) mmol/L Carbon Dioxide 33 H (22-30) mmol/L BUN 24 H (9-20) mg/dL Creatinine 1.30 H (0.66-1.25) mg/dL Glucose 105 H (74-99) mg/dL POC Glucose (mg/dL) (75-99) mg/dL Plasma Lactic Acid Tylor 2.3 H* (0.7-2.0) mmol/L Urine Protein (Negative) Urine Blood (Negative) Amorphous Sediment (None) /hpf Hyaline Casts (0-2) /lpf Urine Mucus (None) /hpf 10/11/16 10/11/16 10/11/16 Range/Units 15:07 15:46 21:58 WBC (3.8-10.6) k/uL Plt Count (150-450) k/uL Neutrophils # (1.3-7.7) k/uL Lymphocytes # (1.0-4.8) k/uL Potassium 3.2 L (3.5-5.1) mmol/L Chloride (98-107) mmol/L Carbon Dioxide (22-30) mmol/L BUN (9-20) mg/dL Creatinine (0.66-1.25) mg/dL Glucose (74-99) mg/dL POC Glucose (mg/dL) 105 H (75-99) mg/dL Plasma Lactic Acid Tylor (0.7-2.0) mmol/L Urine Protein 1+ H (Negative) Urine Blood Moderate H (Negative) Amorphous Sediment Occasional H (None) /hpf Hyaline Casts 9 H (0-2) /lpf Urine Mucus Few H (None) /hpf 10/12/16 10/12/16 Range/Units 03:02 08:24 WBC (3.8-10.6) k/uL Plt Count (150-450) k/uL Neutrophils # (1.3-7.7) k/uL Lymphocytes # (1.0-4.8) k/uL Potassium 2.8 L* 3.4 L (3.5-5.1) mmol/L Chloride (98-107) mmol/L Carbon Dioxide (22-30) mmol/L BUN (9-20) mg/dL Creatinine (0.66-1.25) mg/dL Glucose (74-99) mg/dL POC Glucose (mg/dL) (75-99) mg/dL Plasma Lactic Acid Tylor (0.7-2.0) mmol/L Urine Protein (Negative) Urine Blood (Negative) Amorphous Sediment (None) /hpf Hyaline Casts (0-2) /lpf Urine Mucus (None) /hpf Microbiology - Last 24 Hours (Table) 10/11/16 15:07 Urine Culture - Preliminary Urine,Voided Assessment and Plan Plan: Assessment and plan: 1. Possible gram-negative pneumonia. Start the patient on Levaquin and Zosyn, patient did receive a dose of vancomycin the ER as well, culture, sputum culture , oxygen support liters nasal cannula, DuoNeb 3 mg nebulization 4 times every day, pulmonary consultation from Dr. SAMIR Reece. 2. Hypertension and hypertensive cardiovascular disease. Continue patient on lisinopril 40 mg orally once every day, amlodipine 10 mg orally once every day and hydralazine 100 mg orally twice every day. 3. Hyperlipemia. Continue Pravachol 40 mg orally once every day. 4. History of CVA and TIA. Continue aspirin 81 mg orally once every day for secondary stroke prevention along with Pravachol 40 mg orally once every day. 5. Parkinson disease continue Sinemet 25/100 one tablet orally 3 times every day. 6. Tobacco use and dependence. Smoking cessation and counseling an increased risk of CVA, CAD, mellitus. 7. COPD. Patient will be started on Symbicort 160/4.5 g 2 puffs inhalation twice every day, Spiriva HandiHaler 1 capsule inhalation once every day. 8. Right pulmonary nodule. Patient will need to have a computed tomography scan of the chest in 6 months from now. 9. Nonobstructing kidney stone. Stable. 10. Enlarged prostate. Continue Hytrin 1 mg orally once every day. 11. Bipolar disorder. Continue Cymbalta 120 mg orally once every day and Risperdal 4 mg at night and to milligram in the morning. 12. DVT prophylaxis. Lovenox 40 mg subcutaneously every 24 hours. 13. GI prophylaxis. Continue patient on Protonix 40 mg orally once every day. 14. Patient is full code. 15. Diarrhea we'll check C. diff toxins a and B.
[2016-10-12] MEDS ORDERED: POTASSIUM CHLORIDE ER 20 MEQ TAB.ER PO STA (12:35)
[2016-10-12] MEDS ORDERED: LEVOFLOXACIN 750MG-D5W PMX 750 MG in DEXTROSE/WATER 1 150ML.BAG IVPB SCH (14:00)
[2016-10-12] MEDS: PRAVASTATIN SODIUM 40 MG TAB PO SCH (22:14)
[2016-10-12] MEDS: DULoxetine HCL 60 MG CAPSULE.DR PO SCH (22:14)
--- NOTE | 2016-10-12 22:15 | P.CNPUL ---
History of Present Illness Consult date: 10/12/16 Reason for consult: dyspnea Chief complaint: "I had a heart attack" History of present illness: 61 year old male who is a poor historian is seen and examined with his and son at bedside. The patient states he came to the ER because "I had a heart attack." However, his states he was having shortness of breath for the last 2-3 days. The patient smokes 6 cigarettes per day, but used to smoke 1.5 ppd x 45 years. He states he does not have a history of COPD or asthma. He does not have a nebulizer at home. He does have Ventolin that he uses 2 x per day. His states he did not have fevers at home. He did have chills. He denies coughing, wheezing. He does have known Parkinsons disease. He does not wear home O2 and has no environmental or seasonal allergies. Review of Systems All systems: negative Past Medical History Past Medical History: Atrial Fibrillation, COPD, CVA/TIA, Hyperlipidemia, Hypertension, Myocardial Infarction (RI), Musculoskeletal Disorder, Neurologic Disorder, Osteoarthritis (OA), Prostate Disorder, Thyroid Disorder Additional Past Medical History / Comment(s): CVA- slight R sided weakness and thought process impaired at times, parkinson's -pt states they still have not diagnosed if he has it or not, hypothryoid, arthritis bilateral hands. Last Myocardial Infarction Date:: 2011 History of Any Multi-Drug Resistant Organisms: None Reported Past Surgical History: Appendectomy Additional Past Surgical History / Comment(s): right foot toe surgery as a child , pt denies ever having cardiac cath. Past Anesthesia/Blood Transfusion Reactions: No Reported Reaction Past Psychological History: Bipolar Additional Psychological History / Comment(s): Pt resides with his spouse. He uses a walker to ambulate. He no longer drives. Spouse drives. His manages his medications. No home care. Smoking Status: Current every day smoker (Patient smokes about a pack every day for the past 3 years, he denies any marijuana use he denies any street drug use or abuse, he denies any alcohol abuse.) Past Alcohol Use History: None Reported Additional Past Alcohol Use History / Comment(s): Pt started smoking in 1968 and is about 1 ppd smoker. Past Drug Use History: None Reported - Past Family History Father Family Medical History: Cancer (Father in his 70s from some sort of cancer did not recall the type) Additional Family Medical History / Comment(s): Pt states his father was healthy and at the age of 80yrs. Mother Family Medical History: Cancer, Vascular Disorder (Mother at age of 60 from a brain aneurysm.) Additional Family Medical History / Comment(s): Mother of breast cancer at the age of 41 yrs. Brother(s) Family Medical History: No Reported History (Patient has 3 half-brothers no major medical problems) Medications and Allergies Home Medications Medication Instructions Recorded Confirmed Type risperiDONE [RisperDAL] 2 mg PO QAM 05/22/14 10/11/16 History DULoxetine HCL [Cymbalta] 120 mg PO HS 07/31/15 10/11/16 History Albuterol Inhaler [Ventolin Hfa 2 puff INHALATION RT-Q4H PRN 10/11/16 10/11/16 History Inhaler] Carbidopa-Levodopa 25-100 mg 1 tab PO TID 10/11/16 10/11/16 History [Sinemet 25-100 mg] Divalproex Sodium [Depakote] 500 mg PO BID 10/11/16 10/11/16 History Lisinopril 40 mg PO QAM 10/11/16 10/11/16 History Nitroglycerin Sl Tabs [Nitrostat] 0.4 mg SUBLINGUAL Q5M PRN 10/11/16 10/11/16 History Pravastatin Sodium [Pravachol] 40 mg PO HS 10/11/16 10/11/16 History Terazosin [Hytrin] 2 mg PO BID 10/11/16 10/11/16 History amLODIPine [Norvasc] 10 mg PO DAILY 10/11/16 10/11/16 History hydrALAZINE HCL [Apresoline] 100 mg PO BID 10/11/16 10/11/16 History risperiDONE [RisperDAL] 4 mg PO HS 10/11/16 10/11/16 History Allergies Allergy/AdvReac Type Severity Reaction Status Date / Time No Known Allergies Allergy Verified 09/01/16 23:45 Physical Exam Osteopathic Statement: *. No significant issues noted on an osteopathic structural exam other than those noted in the History and Physical/Consult. Vitals: Vital Signs Temp Pulse Resp BP Pulse Ox 10/12/16 16:00 98 18 10/12/16 15:00 99.0 F 98 18 138/72 94 L 10/12/16 08:00 92 18 10/12/16 07:00 99.6 F 92 18 164/83 95 10/11/16 23:00 98 F 81 16 142/71 95 10/11/16 22:34 94 16 Intake and Output 10/12/16 10/12/16 10/12/16 06:59 14:59 22:59 Intake Total 650 750 Output Total 3 6 Balance 650 747 -6 Intake: Intake, IV Titration 650 350 Amount Levofloxacin 750Mg-D5w 100 Pmx 750 mg In Dextrose/ Water 1 150ml.bag @ 100 mls/hr IVPB Q24H [facility] Rx#: [id number] Piperacillin-Tazobactam 3 50 .375 gm In Dextrose/Water 1 50ml.bag @ 12.5 mls/hr IVPB Q8HR [facility] Rx#: [id number] Potassium Chloride 10 meq 100 In Water For Injection 1 100ml.bag @ 100 mls/hr IVPB ONCE ONE Rx#: [id number] Potassium Chloride 10 meq 50 Lidocaine 2% Inj 10 mg In Sodium Chloride 0.9% 100 ml @ 100 mls/hr IVPB Q1HR [facility] Rx#:[id number] Potassium Chloride 10 meq 200 100 Lidocaine 2% Inj 10 mg In Sodium Chloride 0.9% 100 ml @ 100 mls/hr IVPB Q1HR [facility] Rx#:[id number] Sodium Chloride 0.9% 1, 400 000 ml @ 100 mls/hr IV . Q10H [facility] Rx#:[id number] Oral 400 Output: Stool 3 6 Other: Voiding Method Toilet Toilet Urinal Urinal # Voids 3 3 2 # Bowel Movements 1 Weight 95.708 kg Patient Weight 10/13/16 06:59 Weight 95.708 kg General: Alert, NAD, poor historian CV: RRR, s1/s2 Lungs: Diminished, otherwise clear Abd: soft, NT/ND, +BS Ext: trace edema Results - Laboratory Findings CBC and BMP: 10/11/16 15:07 10/12/16 13:51 PT/INR, D-dimer PT 11.4 sec (9.0-12.0) 10/11/16 15:07 INR 1.1 (<1.1) 10/11/16 15:07 Abnormal lab findings: Abnormal Labs 10/11/16 10/11/16 10/11/16 15:07 15:07 15:07 WBC 10.7 H Plt Count 118 L Neutrophils # 9.5 H Lymphocytes # 0.6 L Potassium 3.1 L Chloride 93 L Carbon Dioxide 33 H BUN 24 H Creatinine 1.30 H Glucose 105 H POC Glucose (mg/dL) Plasma Lactic Acid Tylor 2.3 H* Urine Protein Urine Blood Amorphous Sediment Hyaline Casts Urine Mucus 10/11/16 10/11/16 10/11/16 15:07 15:46 21:58 WBC Plt Count Neutrophils # Lymphocytes # Potassium 3.2 L Chloride Carbon Dioxide BUN Creatinine Glucose POC Glucose (mg/dL) 105 H Plasma Lactic Acid Tylor Urine Protein 1+ H Urine Blood Moderate H Amorphous Sediment Occasional H Hyaline Casts 9 H Urine Mucus Few H 10/12/16 10/12/16 03:02 08:24 WBC Plt Count Neutrophils # Lymphocytes # Potassium 2.8 L* 3.4 L Chloride Carbon Dioxide BUN Creatinine Glucose POC Glucose (mg/dL) Plasma Lactic Acid Tylor Urine Protein Urine Blood Amorphous Sediment Hyaline Casts Urine Mucus - Diagnostic Findings Chest x-ray: report reviewed, image reviewed Assessment and Plan Plan: 06/12 SIRS, sepsis Tracheobronchitis - no pneumonia on CXR AECOPD Dyspnea Active tobacco abuse Hypokalemia Diarrhea Mild thrombocytopenia 4mm Right apical pulmonary nodule seen on CT from 06/2014 Parkinsons disease Hypertension Hx CVA Dyslipidema ASCAD O2 to maintain sat > or = 88% Bronchodilators Pulmicort Gentle hydration, monitor renal function ABX: Zosyn, Levaquin Sputum, blood, urine cultures Stool for Cdiff Replace K Smoking cessation recommended Follow up CT for pulmonary nodules recommended, patient high risk given tobacco abuse Outpatient PFT and PSG (high risk of JULIENNE with Parkinsons) GI and DVT prophylaxis Incentive spirometry and pulmonary hygiene Thank you for this consultation. We will continue to follow along.
[2016-10-12] MEDS: IPRATROPIUM-ALBUTEROL 3 ML NEB INHALATION SCH (23:30)
[2016-10-13] MEDS: PIPERACILLIN-TAZOBACTAM 3.375 GM in DEXTROSE/WATER 1 50ML.BAG IVPB SCH ×2 (00:11→07:59)
[2016-10-13] MEDS: SODIUM CHLORIDE 0.9% 1,000 ML IV SCH ×2 (00:13→12:30)
[2016-10-13] MEDS: IPRATROPIUM-ALBUTEROL 3 ML NEB INHALATION SCH ×6 (03:28→23:50)
[2016-10-13 06:33] LABS: Basophils % (A) 0 %; CH 29.7; CHCM 35.6; Eosinophils # (A) 0.1 k/uL (0-0.7); Eosinophils % (A) 1 %; HCT 37.9 % (39.0-53.0); HDW 3.38; HGB 13.4 gm/dL (13.0-17.5); Luc # (Auto) 0.17; Luc % (Auto) 3; Lymphocytes % (A) 14 %; MCH 29.5 pg (25.0-35.0); MCHC 35.2 g/dL (31.0-37.0); MCV 83.9 fL (80.0-100.0); Mean Platelet Volume 8.2; Monocytes # (A) 0.4 k/uL (0-1.0); Monocytes % (A) 6 %; Neutrophils # (A) 5.3 k/uL (1.3-7.7); Neutrophils % (A) 76 %; RBC 4.52 m/uL (4.30-5.90); WBC (Perox) 7.46
[2016-10-13 06:42] LABS: Calcium 8.2 mg/dL (8.4-10.2); Magnesium 1.6 mg/dL (1.6-2.3); Potassium 3.2 mmol/L (3.5-5.1); Total Bilirubin 0.8 mg/dL (0.2-1.3); Total Protein 5.6 g/dL (6.3-8.2)
--- NOTE | 2016-10-13 06:58 | CT ---
EXAMINATION TYPE: CT chest wo con DATE OF EXAM: 10/12/2016 COMPARISON: Previous study dated 06/28/2014 HISTORY: Pleural reaction. CT DLP: 395.1 mGycm Automated exposure control for dose reduction was used. FINDINGS: There are small bilateral effusions. Lesion in the right lung apex previously measured 7.7 mm today measures 8.4 mm. No other definite ananda n, lesions are seen. There is some shotty axillary adenopathy. No pathologically enlarged lymph nodes are seen in the axil la, mediastinal or hilar regions. There is no pericardial fluid. The heart is enlarged. The root of the aorta is dilated measuring 4.1 cm. At the level of the proximal arch, the aorta measu res 3.4 cm. The proximal descending thoracic aorta measures 3 cm. At the level of the aortic hiatus t he aorta measures 3.2 cm. The suprarenal abdominal aorta is normal in caliber. There is a small hiatal hernia. A left adrenal mass which previously measured 18.7 mm now measures 23.5 mm. There is a stable, nonobstructing 7.5 mm calculus in the anterior pole calyx of the right kidney. Vis ualized portions of the upper abdomen are otherwise normal. There is extensive hypertrophic spondylosis and spondylosis deformans within the spine. IMPRESSION: 1. STABLE RIGHT UPPER LOBE PULMONARY NODULE. 2. SMALL, BILATERAL PLEURAL EFFUSIONS. 3. CARDIOMEGALY. 4. ANEURYSMAL DILATATION OF THE THORACIC AORTA. 5. SMALL HIATAL HERNIA. 6. SLIGHT ENLARGEMENT IN THE PATIENT'S LEFT ADRENAL MASS. 7. NONOBSTRUCTING RIGHT UPPER POLE RENAL CALCULUS. 8. DEGENERATIVE CHANGES WITHIN THE SPINE.
[2016-10-13] MEDS: BUDESONIDE 0.5 MG/2 ML NEBU INHALATION SCH ×2 (07:23→20:08)
[2016-10-13] MEDS: TERAZOSIN 2 MG CAP PO SCH ×2 (07:56→20:40)
[2016-10-13] MEDS: LISINOPRIL 20 MG TAB PO SCH (07:56)
[2016-10-13] MEDS: PANTOPRAZOLE 40 MG TABLET PO SCH (07:56)
[2016-10-13] MEDS: ASPIRIN 81 MG CHEW PO SCH (07:57)
[2016-10-13] MEDS: amLODIPine 10 MG TAB PO SCH (07:57)
[2016-10-13] MEDS: risperiDONE 2 MG TAB PO SCH ×2 (07:58→20:40)
[2016-10-13] MEDS: CARBIDOPA-LEVODOPA 25-100 MG 1 EACH TAB PO SCH ×3 (07:59→20:41)
[2016-10-13] MEDS: hydrALAZINE HCL 50 MG TAB PO SCH ×2 (07:59→20:40)
[2016-10-13] MEDS: ENOXAPARIN 40 MG/0.4 ML SYRINGE SQ SCH (07:59)
[2016-10-13] MEDS: DIVALPROEX 500 MG TABLET.DR PO SCH ×2 (07:59→20:40)
[2016-10-13] MEDS: POTASSIUM CHLORIDE ER 20 MEQ TAB.ER PO SCH ×2 (10:52→12:32)
--- NOTE | 2016-10-13 11:45 | P.PN ---
Subjective Principal diagnosis: Dyspnea Patient seen and examined. His is at bedside. The patient states he is feeling better. His breathing is improving. He denies cough, fevers, chills. The patient has had some continued diarrhea per his . CT of the chest results are discussed with the patient and his . Objective - Vital Signs Vital signs: Vital Signs Temp 97.7 F 10/13/16 07:00 Pulse 84 10/13/16 11:22 Resp 16 10/13/16 08:00 BP 140/74 10/13/16 07:00 Pulse Ox 92 L 10/13/16 07:00 Intake & Output 10/12/16 10/13/16 10/13/16 18:59 06:59 18:59 Intake Total 750 900 Output Total 9 3 Balance 741 897 Weight 95.708 kg 95.708 kg Intake: Intake, IV Titration 350 100 Amount Levofloxacin 750Mg-D5w 100 Pmx 750 mg In Dextrose/ Water 1 150ml.bag @ 100 mls/hr IVPB Q24H [facility] Rx#: [id number] Piperacillin-Tazobactam 3 50 .375 gm In Dextrose/Water 1 50ml.bag @ 12.5 mls/hr IVPB Q8HR [facility] Rx#: [id number] Potassium Chloride 10 meq 100 In Water For Injection 1 100ml.bag @ 100 mls/hr IVPB ONCE ONE Rx#: [id number] Potassium Chloride 10 meq 100 Lidocaine 2% Inj 10 mg In Sodium Chloride 0.9% 100 ml @ 100 mls/hr IVPB Q1HR [facility] Rx#:[id number] Sodium Chloride 0.9% 1, 100 000 ml @ 75 mls/hr IV . [id number] [facility] Rx#:[id number] Oral 400 800 Output: Stool 9 3 Other: Voiding Method Toilet Toilet Toilet Urinal Urinal Urinal # Voids 3 2 # Bowel Movements 1 - Exam General: Alert, NAD, poor historian CV: RRR, s1/s2 Lungs: Diminished, otherwise clear Abd: soft, NT/ND, +BS Ext: trace edema - Labs CBC & Chem 7: 10/13/16 06:03 10/13/16 06:03 Labs: Abnormal Lab Results - Last 24 Hours (Table) 10/13/16 10/13/16 Range/Units 06:03 06:03 Hct 37.9 L (39.0-53.0) % Plt Count 120 L (150-450) k/uL Potassium 3.2 L (3.5-5.1) mmol/L BUN 28 H (9-20) mg/dL Creatinine 1.50 H (0.66-1.25) mg/dL Glucose 105 H (74-99) mg/dL Calcium 8.2 L (8.4-10.2) mg/dL ALT 19 L (21-72) U/L Total Protein 5.6 L (6.3-8.2) g/dL Albumin 2.8 L (3.5-5.0) g/dL Microbiology - Last 24 Hours (Table) 10/11/16 15:07 Urine Culture - Final Urine,Voided 10/11/16 19:21 Blood Culture - Preliminary Blood No Growth after 24 hours 10/11/16 15:07 Blood Culture - Preliminary Blood No Growth after 24 hours Assessment and Plan Plan: 2/ SIRS, sepsis, unclear etiology Tracheobronchitis - no pneumonia on CXR/CT AECOPD Dyspnea Active tobacco abuse Hypokalemia Acute kidney injury, baseline creatinine appears to be around 1.0 Enlarging left adrenal mass Thoracic aortic aneurysm Diarrhea Mild thrombocytopenia 4mm Right apical pulmonary nodule, stable since 2014 Parkinsons disease Hypertension Hx CVA Dyslipidema ASCAD O2 to maintain sat > or = 88% Bronchodilators Pulmicort Gentle hydration, monitor renal function ABX: Zosyn, Levaquin Sputum, blood, urine cultures negative to date Stool for Cdiff pending Adrenal mass work up per primary team Replace K Smoking cessation recommended CT in 1 year to follow nodule Outpatient PFT and PSG (high risk of JULIENNE with Parkinsons) GI and DVT prophylaxis Incentive spirometry and pulmonary hygiene
[2016-10-13] MEDS: NYSTATIN 100,000 UNIT/ML SUSP 500,000 UNIT/5 ML CUP PO SCH ×3 (12:32→20:41)
[2016-10-13] MEDS ORDERED: LEVOFLOXACIN 500 MG TAB PO SCH (14:00)
--- NOTE | 2016-10-13 14:06 | P.PN ---
Subjective This is a 61-year-old male one of Dr. Francis with a previous medical history significant for hypertension and hypertensive cardiovascular disease, history of coronary artery disease post microinfarction back in 2011 without any left heart catheterization, history of TIA with a cerebrovascular accident back in 2008 with right-sided hand weakness and mild speech residual, hyperlipidemia, patient was recently seen by our service back in August 2016 after he was admitted for chest pain and was seen and evaluated by cardiology apparently patient was in his usual state of health until the past 24 hours when he developed to have a significant fever and chills without any other symptoms patient denies any headache at this point in time he has no visual diligently has no chest pain he does complain of weak cough without any sore throat. Patient ended up coming to the ER at [facility] because of that and he said pressure was elevated at 13.5 patient did receive Tylenol as well as IV fluid and he had a chest x-ray that did not show any evidence of acute infiltrate however there were some reaction the left and right pleural space without any heart heart failure or acute infiltrate, patient was started on IV antibiotic for possible gram-negative pneumonia since the patient wasn't Hospital about less than 6 weeks ago, he was given vancomycin and Zosyn and Levaquin and he was admitted to the hospital, pulmonary consultation was obtained from Dr. SAMIR Reece, blood cultures as well as sputum cultures were obtained. 10/12: Patient is laying down in bed he is feeling a bit better today he continues to be somewhat emotional and is crying but he denies any chest pain or any shortness breath he has no coughing no fever or chills he does complain of diarrhea no nausea or vomiting. 10/13: CT of the chest reveals a stable right upper lobe pulmonary nodule, small bilateral pleural effusions, cardiomegaly, aneurysmal dilatation of the thoracic aorta, small hiatal hernia, slight enlargement in the patient's left adrenal mass, nonobstructing right upper lobe renal calculus, degenerative changes within the spine. Zosyn will be discontinued and Levaquin to oral. Patient is followed by Dr. Gallagher. Potassium will be replaced. Anticipate discharge home tomorrow. Objective - Vital Signs Vital signs: Vital Signs Temp 97.7 F 10/13/16 07:00 Pulse 84 10/13/16 07:40 Resp 16 10/13/16 08:00 BP 140/74 10/13/16 07:00 Pulse Ox 92 L 10/13/16 07:00 Intake & Output 10/12/16 10/13/16 10/13/16 18:59 06:59 18:59 Intake Total 750 900 Output Total 9 3 Balance 741 897 Weight 95.708 kg Intake: Intake, IV Titration 350 100 Amount Levofloxacin 750Mg-D5w 100 Pmx 750 mg In Dextrose/ Water 1 150ml.bag @ 100 mls/hr IVPB Q24H [facility] Rx#: [id number] Piperacillin-Tazobactam 3 50 .375 gm In Dextrose/Water 1 50ml.bag @ 12.5 mls/hr IVPB Q8HR [facility] Rx#: [id number] Potassium Chloride 10 meq 100 In Water For Injection 1 100ml.bag @ 100 mls/hr IVPB ONCE ONE Rx#: [id number] Potassium Chloride 10 meq 100 Lidocaine 2% Inj 10 mg In Sodium Chloride 0.9% 100 ml @ 100 mls/hr IVPB Q1HR [facility] Rx#:[id number] Sodium Chloride 0.9% 1, 100 000 ml @ 75 mls/hr IV . [id number] [facility] Rx#:[id number] Oral 400 800 Output: Stool 9 3 Other: Voiding Method Toilet Toilet Toilet Urinal Urinal Urinal # Voids 3 2 # Bowel Movements 1 - Exam General appearance: average body habitus, no acute distress - EENT Eyes: anicteric sclerae, EOMI, PERRLA, no ptosis, no scleral icterus, normal appearance ENT: NA/AT, normal oropharynx, no thrush - Neck Neck: no lymphadenopathy, normal ROM, no rigidity, no stridor, no thyromegaly Carotids: bilateral: upstroke delayed Thyroid: bilateral: normal size - Respiratory Respiratory: bilateral: diminished, prolonged expiration, negative: dullness, rales, rhonchi, wheezing - Cardiovascular Rhythm: regular Heart sounds: normal: S1, S2 Abnormal Heart Sounds: no systolic murmur, no rub, no click - Gastrointestinal General gastrointestinal: normal bowel sounds, soft, no splenomegaly, no tenderness, no umbilical hernia, no ventral hernia - Integumentary Integumentary: normal, normal turgor - Neurologic Neurologic: CNII-XII intact, focal deficits - Musculoskeletal Musculoskeletal: generalized weakness, right sided weakness - Psychiatric Psychiatric: A&O x's 3, appropriate affect, intact judgment & insight - Labs CBC & Chem 7: 10/13/16 06:03 10/13/16 06:03 Labs: Abnormal Lab Results - Last 24 Hours (Table) 10/13/16 10/13/16 Range/Units 06:03 06:03 Hct 37.9 L (39.0-53.0) % Plt Count 120 L (150-450) k/uL Potassium 3.2 L (3.5-5.1) mmol/L BUN 28 H (9-20) mg/dL Creatinine 1.50 H (0.66-1.25) mg/dL Glucose 105 H (74-99) mg/dL Calcium 8.2 L (8.4-10.2) mg/dL ALT 19 L (21-72) U/L Total Protein 5.6 L (6.3-8.2) g/dL Albumin 2.8 L (3.5-5.0) g/dL Microbiology - Last 24 Hours (Table) 10/11/16 15:07 Urine Culture - Final Urine,Voided 10/11/16 19:21 Blood Culture - Preliminary Blood No Growth after 24 hours 10/11/16 15:07 Blood Culture - Preliminary Blood No Growth after 24 hours Assessment and Plan Plan: 1. Possible gram-negative pneumonia. Start the patient on Levaquin and Zosyn, patient did receive a dose of vancomycin the ER as well, culture, sputum culture , oxygen support liters nasal cannula, DuoNeb 3 mg nebulization 4 times every day, pulmonary consultation from Dr. SAMIR Reece. 2. Hypertension and hypertensive cardiovascular disease. Continue patient on lisinopril 40 mg orally once every day, amlodipine 10 mg orally once every day and hydralazine 100 mg orally twice every day. 3. Hyperlipemia. Continue Pravachol 40 mg orally once every day. 4. History of CVA and TIA. Continue aspirin 81 mg orally once every day for secondary stroke prevention along with Pravachol 40 mg orally once every day. 5. Parkinson disease continue Sinemet 25/100 one tablet orally 3 times every day. 6. Tobacco use and dependence. Smoking cessation and counseling an increased risk of CVA, CAD, mellitus. 7. COPD. Patient will be started on Symbicort 160/4.5 g 2 puffs inhalation twice every day, Spiriva HandiHaler 1 capsule inhalation once every day. 8. Right pulmonary nodule. Patient will need to have a computed tomography scan of the chest in 6 months from now. 9. Nonobstructing kidney stone. Stable. 10. Enlarged prostate. Continue Hytrin 1 mg orally once every day. 11. Bipolar disorder. Continue Cymbalta 120 mg orally once every day and Risperdal 4 mg at night and to milligram in the morning. 12. DVT prophylaxis. Lovenox 40 mg subcutaneously every 24 hours. 13. GI prophylaxis. Continue patient on Protonix 40 mg orally once every day. 14. Patient is full code. 15. Diarrhea we'll check C. diff toxins a and B. Discharge plan: Return home Impression and plan of care have been directed as dictated by the signing physician. Gina Cade nurse practitioner acting as scribe for signing physician.
--- NOTE | 2016-10-13 15:07 | CDI ---
In responding to this query, please exercise your independent professional judgment. The [facility] Coding Staff and Clinical Documentation Specialists appreciate your assistance in clarifying documentation, maintaining compliance with coding guidelines, accurately documenting patients condition and capturing severity of illness. The fact that a question is asked does not imply that any particular answer is desired or expected. Communication forms are a method of clarifying documentation and are not made part of the Legal Health Record. Thank you in advance for your clarification. Last Revision, August 2016 Meng Castaneda [address] [facility] [place] [address] Documentation Clarification Form Date: 10/13/2016 2:52:00 PM From: Yocasta Lennon CCS, CCDS Admit Date: 10/11/2016 5:46:00 PM Patient Name: Nicholas Rodriguez Visit Number: [id number] Discharge Date: Dr. Scott Dougherty: 61 yo male, presented with SOB, chills & weakness via EMS. Per the pulmonary notes, no pneumonia per imaging. Dx with Sepsis, unclear source, acute exacerbation COPD & acute tracheobronchitis, also acute kidney failure. Per the attending notes: patient is admitted with gram negative pneumonia. History/Risk Factors: COPD, VT, Hypertensive cardiovascular disease, CVA w/ residual rt side weakness, A Fib. Current smoker. Clinical Indicators: VS: T 103.4, P 97, R 16, BP 183/90, PO 93 2Lnc WBC: 10.7, Neut 9.5, Lactic Acid 2.3^^, K 3.1-2.8 Blood cultures: Pending final. Urine cultures: (>100,000 CFU: (contamination?) Patient presented with fever, chills, cough & weakness. Treatment: Blood & Urine cultures, IV fluids, IV fluid bolus, IV Toradol, Albuteral Neb INH, IV Levaquin, Kcl IV, IV Zosyn, IV Vanco, O2 2Lnc. Pulmonary consult. In your professional opinion, please clarify if these findings signify one of the following conditions, whether the condition is POA, and cause, if known: Sepsis Ruled in, Ruled out SIRS, without underlying infectious process Severe Sepsis Unable to determine Other, please specify Present on Admission: Yes No * Identify the (suspected) organism * Link or clarify if there is associated (due to/with): Organ Failure Other: Please document in your progress notes and discharge summary in order to capture severity of illness and risk of mortality. Include clinical findings that support your diagnosis. FYI: Press F11 to launch patient chart. Place X here if this finding has no clinical significance, is not applicable or if you are not able to provide any additional documentation. Thank You. CARRIE
[2016-10-13] MEDS: PRAVASTATIN SODIUM 40 MG TAB PO SCH (20:40)
[2016-10-13] MEDS: DULoxetine HCL 60 MG CAPSULE.DR PO SCH (20:40)
[2016-10-14] MEDS: IPRATROPIUM-ALBUTEROL 3 ML NEB INHALATION SCH ×6 (03:23→23:44)
[2016-10-14] MEDS: SODIUM CHLORIDE 0.9% 1,000 ML IV SCH ×3 (03:33→13:32)
[2016-10-14] MEDS: amLODIPine 10 MG TAB PO SCH (08:47)
[2016-10-14] MEDS: ENOXAPARIN 40 MG/0.4 ML SYRINGE SQ SCH (08:47)
[2016-10-14] MEDS: NYSTATIN 100,000 UNIT/ML SUSP 500,000 UNIT/5 ML CUP PO SCH ×4 (08:47→23:13)
[2016-10-14] MEDS: PANTOPRAZOLE 40 MG TABLET PO SCH (08:47)
[2016-10-14] MEDS: CARBIDOPA-LEVODOPA 25-100 MG 1 EACH TAB PO SCH ×3 (08:48→23:12)
[2016-10-14] MEDS: risperiDONE 2 MG TAB PO SCH ×2 (08:48→23:12)
[2016-10-14] MEDS: hydrALAZINE HCL 50 MG TAB PO SCH ×2 (08:48→23:12)
[2016-10-14] MEDS: LISINOPRIL 20 MG TAB PO SCH (08:49)
[2016-10-14] MEDS: TERAZOSIN 2 MG CAP PO SCH ×2 (08:49→23:13)
[2016-10-14] MEDS: DIVALPROEX 500 MG TABLET.DR PO SCH ×2 (08:49→23:12)
[2016-10-14] MEDS: ASPIRIN 81 MG CHEW PO SCH (08:49)
[2016-10-14 09:08] LABS: Basophils % (A) 0 %; CH 29.7; CHCM 34.4; Eosinophils # (A) 0.2 k/uL (0-0.7); Eosinophils % (A) 2 %; HDW 3.17; HGB 14.5 gm/dL (13.0-17.5); Luc # (Auto) 0.27; Luc % (Auto) 3; Lymphocytes # (A) 1.6 k/uL (1.0-4.8); Lymphocytes % (A) 18 %; MCH 29.3 pg (25.0-35.0); MCHC 33.6 g/dL (31.0-37.0); MCV 87.1 fL (80.0-100.0); Mean Platelet Volume 8.8; Monocytes # (A) 0.7 k/uL (0-1.0); Monocytes % (A) 7 %; Neutrophils # (A) 6.4 k/uL (1.3-7.7); Neutrophils % (A) 70 %; RBC 4.94 m/uL (4.30-5.90); RDW 14.4 % (11.5-15.5); WBC 9.2 k/uL (3.8-10.6); WBC (Perox) 9.25
[2016-10-14] MEDS: BUDESONIDE 0.5 MG/2 ML NEBU INHALATION SCH ×2 (09:19→19:18)
[2016-10-14 09:27] LABS: Calcium 8.6 mg/dL (8.4-10.2); Magnesium 1.9 mg/dL (1.6-2.3); Total Bilirubin 0.7 mg/dL (0.2-1.3); Total Protein 6.5 g/dL (6.3-8.2)
--- NOTE | 2016-10-14 15:26 | P.PN ---
Subjective This is a 61-year-old male one of Dr. Francis with a previous medical history significant for hypertension and hypertensive cardiovascular disease, history of coronary artery disease post microinfarction back in 2011 without any left heart catheterization, history of TIA with a cerebrovascular accident back in 2008 with right-sided hand weakness and mild speech residual, hyperlipidemia, patient was recently seen by our service back in August 2016 after he was admitted for chest pain and was seen and evaluated by cardiology apparently patient was in his usual state of health until the past 24 hours when he developed to have a significant fever and chills without any other symptoms patient denies any headache at this point in time he has no visual diligently has no chest pain he does complain of weak cough without any sore throat. Patient ended up coming to the ER at [facility] because of that and he said pressure was elevated at 13.5 patient did receive Tylenol as well as IV fluid and he had a chest x-ray that did not show any evidence of acute infiltrate however there were some reaction the left and right pleural space without any heart heart failure or acute infiltrate, patient was started on IV antibiotic for possible gram-negative pneumonia since the patient wasn't Hospital about less than 6 weeks ago, he was given vancomycin and Zosyn and Levaquin and he was admitted to the hospital, pulmonary consultation was obtained from Dr. SAMIR Reece, blood cultures as well as sputum cultures were obtained. 10/12: Patient is laying down in bed he is feeling a bit better today he continues to be somewhat emotional and is crying but he denies any chest pain or any shortness breath he has no coughing no fever or chills he does complain of diarrhea no nausea or vomiting. 10/13: CT of the chest reveals a stable right upper lobe pulmonary nodule, small bilateral pleural effusions, cardiomegaly, aneurysmal dilatation of the thoracic aorta, small hiatal hernia, slight enlargement in the patient's left adrenal mass, nonobstructing right upper lobe renal calculus, degenerative changes within the spine. Zosyn will be discontinued and Levaquin to oral. Patient is followed by Dr. Gallagher. Potassium will be replaced. Anticipate discharge home tomorrow. 10/14: BUN and creatinine have risen today and IV fluids will be started at 75 mL/ h. Levaquin changed every 48 hours. Eosinophil level and ultrasound of the kidneys have been ordered. Plan to monitor overnight and provide IV fluids and discharged tomorrow. Objective - Vital Signs Vital signs: Vital Signs Temp 97.4 F L 10/14/16 07:00 Pulse 86 10/14/16 09:29 Resp 18 10/14/16 07:00 BP 138/78 10/14/16 07:00 Pulse Ox 93 L 10/14/16 07:00 Intake & Output 10/13/16 10/14/16 10/14/16 18:59 06:59 18:59 Intake Total 525 880 Output Total 3 3 Balance 525 877 -3 Weight 95.708 kg Intake: Intake, IV Titration 525 Amount Sodium Chloride 0.9% 1, 525 000 ml @ 75 mls/hr IV . [id number] [facility] Rx#:[id number] Oral 880 Output: Stool 3 3 Other: Voiding Method Toilet Toilet Toilet Urinal Urinal Urinal # Voids 2 3 # Bowel Movements 1 1 - Exam General appearance: average body habitus, no acute distress - EENT Eyes: anicteric sclerae, EOMI, PERRLA, no ptosis, no scleral icterus, normal appearance ENT: NA/AT, normal oropharynx, no thrush - Neck Neck: no lymphadenopathy, normal ROM, no rigidity, no stridor, no thyromegaly Carotids: bilateral: upstroke delayed Thyroid: bilateral: normal size - Respiratory Respiratory: bilateral: diminished, prolonged expiration, negative: dullness, rales, rhonchi, wheezing - Cardiovascular Rhythm: regular Heart sounds: normal: S1, S2 Abnormal Heart Sounds: no systolic murmur, no rub, no click - Gastrointestinal General gastrointestinal: normal bowel sounds, soft, no splenomegaly, no tenderness, no umbilical hernia, no ventral hernia - Integumentary Integumentary: normal, normal turgor - Neurologic Neurologic: CNII-XII intact, focal deficits - Musculoskeletal Musculoskeletal: generalized weakness, right sided weakness - Psychiatric Psychiatric: A&O x's 3, appropriate affect, intact judgment & insight - Labs CBC & Chem 7: 10/14/16 08:41 10/14/16 08:41 Labs: Abnormal Lab Results - Last 24 Hours (Table) 10/14/16 Range/Units 08:41 BUN 37 H (9-20) mg/dL Creatinine 1.90 H (0.66-1.25) mg/dL Glucose 112 H (74-99) mg/dL ALT 19 L (21-72) U/L Albumin 3.4 L (3.5-5.0) g/dL Microbiology - Last 24 Hours (Table) 10/11/16 19:21 Blood Culture - Preliminary Blood No Growth after 48 hours 10/11/16 15:07 Blood Culture - Preliminary Blood No Growth after 48 hours Assessment and Plan Plan: 1. Possible gram-negative pneumonia. Start the patient on Levaquin, patient did receive a dose of vancomycin the ER as well, culture, sputum culture, oxygen support liters nasal cannula, DuoNeb 3 mg nebulization 4 times every day , pulmonary consultation from Dr. SAMIR Reece. 2. Hypertension and hypertensive cardiovascular disease. Continue patient on lisinopril 40 mg orally once every day, amlodipine 10 mg orally once every day and hydralazine 100 mg orally twice every day. 3. Hyperlipemia. Continue Pravachol 40 mg orally once every day. 4. History of CVA and TIA. Continue aspirin 81 mg orally once every day for secondary stroke prevention along with Pravachol 40 mg orally once every day. 5. Parkinson disease continue Sinemet 25/100 one tablet orally 3 times every day. 6. Tobacco use and dependence. Smoking cessation and counseling an increased risk of CVA, CAD, mellitus. 7. COPD. Patient will be started on Symbicort 160/4.5 g 2 puffs inhalation twice every day, Spiriva HandiHaler 1 capsule inhalation once every day. 8. Right pulmonary nodule. Patient will need to have a computed tomography scan of the chest in 6 months from now. 9. Nonobstructing kidney stone. Stable. 10. Enlarged prostate. Continue Hytrin 1 mg orally once every day. 11. Bipolar disorder. Continue Cymbalta 120 mg orally once every day and Risperdal 4 mg at night and to milligram in the morning. 12. DVT prophylaxis. Lovenox 40 mg subcutaneously every 24 hours. 13. GI prophylaxis. Continue patient on Protonix 40 mg orally once every day. 14. Patient is full code. 15. Diarrhea we'll check C. diff toxins a and B. 16. Acute kidney injury. IV fluids at 75 mL per hour. Eosinophil in the urine to be checked and renal ultrasound ordered. Levaquin changed every 48 hours. Discharge plan: Return home Impression and plan of care have been directed as dictated by the signing physician. Gina Cade nurse practitioner acting as scribe for signing physician.
--- NOTE | 2016-10-14 15:37 | US ---
EXAMINATION TYPE: US renals and bladder DATE OF EXAM: 10/14/2016 COMPARISON: CT CLINICAL HISTORY: NALLELY. NALLELY EXAM MEASUREMENTS: Right Kidney: 11.4 x 5.6 x 4.9 cm Left Kidney: 12.4 x 5.5 x 5.7 cm Right Kidney: 0.6cm echogenic shadowing focus superior pole collecting system, 2.7cm cystic area late ral midpole, the lesion appears anechoic, difficult to exclude some internal septations or some possi ble wall thickening. Left Kidney: no hydronephrosis or renal masses seen at this time Bilateral Jets seen: no Cortical medullary differentiation is maintained, there is cortical thinning bilaterally. The prostat e is enlarged and causes an inferior impression on the bladder.. There is no ascites evident. IMPRESSION: Right-sided nephrolithiasis, there is some cortical thinning bilaterally, no hydronephrosis. Cystic f ocus mid pole right kidney is not definitely simple cystic, follow-up is recommended. Prostate enlarg ement.
--- NOTE | 2016-10-14 18:24 | PN ---
DATE OF SERVICE: 10/14/2016 Patient is a 61-year-old male who is seen lying in bed. He is awake and alert; just returned from the x-ray department. Patient with flat affect. Denies any shortness of breath or pain. Patient is hemodynamically stable, afebrile, in no acute distress. On physical exam, vital signs are temperature 97.4, heart rate 86, respiratory rate 18. Blood pressure is 138/78. Oxygen saturation is 93% on room air. HEENT: Head is normocephalic, atraumatic. NECK: Supple. Trachea is midline. LUNGS: Decreased breath sounds. No clear rales or wheezes. HEART: S1 and S2 are heard. Not tachycardic. ABDOMEN: Soft. Bowel sounds are heard. EXTREMITIES: Trace edema. NEUROLOGIC: Patient is awake, alert. Does have a history of Parkinson's disease. Does have a flat affect. LABS: White count is 9.2, hemoglobin 14.5, hematocrit 43.0 with 156,000 platelets. Sodium is 140, potassium 4.0, chloride 103. CO2 is 25. Anion gap is 12. BUN is 37, creatinine 1.90. Glucose is 112. Calcium is 8.6. Magnesium is 1.9. Total bilirubin 0.7. AST is 42. ALT is 19. Alkaline phosphatase is 56. Total protein is 6.5. Albumin is 3.4. Renal ultrasound is pending. IMPRESSION: 1. Systemic inflammatory response syndrome/sepsis; unclear etiology. 2. Tracheobronchitis. 3. Chronic obstructive pulmonary disease with acute exacerbation. 4. Dyspnea. 5. Active tobacco abuse. 6. Hypokalemia, which has resolved. 7. Acute kidney injury. Baseline creatinine appears to be around 1. 8. Enlarging left adrenal mass. 9. Thoracic aortic aneurysm. 10. Diarrhea. 11. Right apical pulmonary nodule measuring 4 mm, stable since 2015. 12. Parkinson's disease. 13. Hypertension. 14. History of cerebrovascular accident. 15. Dyslipidemia. PLAN: Continue oxygen to maintain saturations greater than or equal to 88%. Continue bronchodilators and aerosolized steroids. Continue to monitor renal function. Renal ultrasound is pending. Continue antibiotics. Smoking cessation is highly recommended. Patient should have a repeat CT scan of the chest in one year to follow up on the nodule as well as an outpatient PFT and diagnostic sleep study, as patient is high risk for obstructive sleep apnea with Parkinson's disease. Continue GI and DVT prophylaxis with incentive spirometry and pulmonary hygiene. Continue to increase activity as tolerated. Will follow with you closely, making further changes as necessary.
[2016-10-14] MEDS: DULoxetine HCL 60 MG CAPSULE.DR PO SCH (23:12)
[2016-10-14] MEDS: PRAVASTATIN SODIUM 40 MG TAB PO SCH (23:12)
[2016-10-15] MEDS: IPRATROPIUM-ALBUTEROL 3 ML NEB INHALATION SCH ×3 (04:21→12:43)
[2016-10-15] MEDS: SODIUM CHLORIDE 0.9% 1,000 ML IV SCH ×2 (05:10→05:52)
[2016-10-15 07:45] VITALS: BP 147/80; RESP 16; TEMP 98.9
[2016-10-15 08:12] LABS: CH 29.7; CHCM 33.8; HCT 37.5 % (39.0-53.0); HDW 3.08; HGB 12.4 gm/dL (13.0-17.5); MCH 29.1 pg (25.0-35.0); MCV 88.2 fL (80.0-100.0); Mean Platelet Volume 8.7; RBC 4.26 m/uL (4.30-5.90); RDW 14.3 % (11.5-15.5); WBC 7.5 k/uL (3.8-10.6)
[2016-10-15 08:29] LABS: Calcium 8.1 mg/dL (8.4-10.2); Potassium 3.8 mmol/L (3.5-5.1); Total Bilirubin 0.5 mg/dL (0.2-1.3); Total Protein 5.3 g/dL (6.3-8.2)
[2016-10-15] MEDS: BUDESONIDE 0.5 MG/2 ML NEBU INHALATION SCH (08:36)
[2016-10-15] MEDS: ENOXAPARIN 40 MG/0.4 ML SYRINGE SQ SCH (08:57)
[2016-10-15] MEDS: DIVALPROEX 500 MG TABLET.DR PO SCH (08:57)
[2016-10-15] MEDS: CARBIDOPA-LEVODOPA 25-100 MG 1 EACH TAB PO SCH (08:58)
[2016-10-15] MEDS: hydrALAZINE HCL 50 MG TAB PO SCH (08:58)
[2016-10-15] MEDS: ASPIRIN 81 MG CHEW PO SCH (08:58)
[2016-10-15] MEDS: risperiDONE 2 MG TAB PO SCH (08:58)
[2016-10-15] MEDS: PANTOPRAZOLE 40 MG TABLET PO SCH (08:58)
[2016-10-15] MEDS: amLODIPine 10 MG TAB PO SCH (08:58)
[2016-10-15] MEDS: NYSTATIN 100,000 UNIT/ML SUSP 500,000 UNIT/5 ML CUP PO SCH (08:58)
[2016-10-15] MEDS: TERAZOSIN 2 MG CAP PO SCH (08:59)
[2016-10-15] MEDS: LISINOPRIL 20 MG TAB PO SCH (08:59)
[2016-10-15] MEDS ORDERED: LEVOFLOXACIN 500 MG TAB PO SCH (12:00)
--- NOTE | 2016-10-15 12:38 | P.DS ---
Providers Date of admission: 10/11/16 17:46 Expected date of discharge: 10/15/16 Attending physician: Scott Dougherty Consults: 10/11/16 17:46 Consult Physician Routine Consulting Provider: Mike Reece Consult Reason/Comments: pneumonia Do you want consulting provider notified?: Yes Primary care physician: Fl[facility] Course: This is a 61-year-old male one of Dr. Francis with a previous medical history significant for hypertension and hypertensive cardiovascular disease, history of coronary artery disease post microinfarction back in 2011 without any left heart catheterization, history of TIA with a cerebrovascular accident back in 2008 with right-sided hand weakness and mild speech residual, hyperlipidemia, patient was recently seen by our service back in August 2016 after he was admitted for chest pain and was seen and evaluated by cardiology apparently patient was in his usual state of health until the past 24 hours when he developed to have a significant fever and chills without any other symptoms patient denies any headache at this point in time he has no visual diligently has no chest pain he does complain of weak cough without any sore throat. Patient ended up coming to the ER at [facility] because of that and he said pressure was elevated at 13.5 patient did receive Tylenol as well as IV fluid and he had a chest x-ray that did not show any evidence of acute infiltrate however there were some reaction the left and right pleural space without any heart heart failure or acute infiltrate, patient was started on IV antibiotic for possible gram-negative pneumonia since the patient wasn't Hospital about less than 6 weeks ago, he was given vancomycin and Zosyn and Levaquin and he was admitted to the hospital, pulmonary consultation was obtained from Dr. SAMIR Reece, blood cultures as well as sputum cultures were obtained. 10/12: Patient is laying down in bed he is feeling a bit better today he continues to be somewhat emotional and is crying but he denies any chest pain or any shortness breath he has no coughing no fever or chills he does complain of diarrhea no nausea or vomiting. 10/13: CT of the chest reveals a stable right upper lobe pulmonary nodule, small bilateral pleural effusions, cardiomegaly, aneurysmal dilatation of the thoracic aorta, small hiatal hernia, slight enlargement in the patient's left adrenal mass, nonobstructing right upper lobe renal calculus, degenerative changes within the spine. Zosyn will be discontinued and Levaquin to oral. Patient is followed by Dr. Gallagher. Potassium will be replaced. Anticipate discharge home tomorrow. 10/14: BUN and creatinine have risen today and IV fluids will be started at 75 mL/ h. Levaquin changed every 48 hours. Eosinophil level and ultrasound of the kidneys have been ordered. Plan to monitor overnight and provide IV fluids and discharged tomorrow. 10/15:BUN 39 and creatinine 1.77. Patient will be discharged home today in stable condition. Discharge Diagnoses: 1. Possible gram-negative pneumonia and sepsis, all present on admission. 2. Hypertension and hypertensive cardiovascular disease. 3. Hyperlipemia. 4. History of CVA and TIA. 5. Parkinson disease 6. Tobacco use and dependence. 7. COPD. 8. Right pulmonary nodule. 9. Nonobstructing kidney stone. Stable. 10. Enlarged prostate. 11. Bipolar disorder. 12. Acute kidney injury. IV fluids at 75 mL per hour. Eosinophil in the urine to be checked and renal ultrasound ordered. Levaquin changed every 48 hours. Discharge plan: Return home Impression and plan of care have been directed as dictated by the signing physician. Gina Cade nurse practitioner acting as scribe for signing physician. Patient Condition at Discharge: Good Plan - Discharge Summary New Discharge Prescriptions: New Budesonide [Pulmicort] 0.5 mg INHALATION RT-BID #60 neb Ipratropium-Albuterol Nebulize [Duoneb 0.5 mg-3 mg/3 ml Soln] 3 ml INHALATION RT-QID #120 neb Levofloxacin [Levaquin] 500 mg PO Q48H #7 tab Nystatin 100,000 Unit/ml Susp [Mycostatin Oral Susp] 500,000 unit PO QID #28 dose Continue risperiDONE [RisperDAL] 2 mg PO QAM DULoxetine HCL [Cymbalta] 120 mg PO HS Aspirin EC [Ecotrin Low Dose] 81 mg PO DAILY #30 tablet. Pravastatin Sodium [Pravachol] 40 mg PO HS Terazosin [Hytrin] 2 mg PO BID Divalproex Sodium [Depakote] 500 mg PO BID Carbidopa-Levodopa 25-100 mg [Sinemet 25-100 mg] 1 tab PO TID risperiDONE [RisperDAL] 4 mg PO HS Lisinopril 40 mg PO QAM Albuterol Inhaler [Ventolin Hfa Inhaler] 2 puff INHALATION RT-Q4H PRN PRN Reason: Dyspnea amLODIPine [Norvasc] 10 mg PO DAILY Nitroglycerin Sl Tabs [Nitrostat] 0.4 mg SUBLINGUAL Q5M PRN PRN Reason: Angina hydrALAZINE HCL [Apresoline] 100 mg PO BID Discharge Medication List risperiDONE [RisperDAL] 2 mg PO QAM 05/22/14 [History] DULoxetine HCL [Cymbalta] 120 mg PO HS 07/31/15 [History] Aspirin EC [Ecotrin Low Dose] 81 mg PO DAILY #30 tablet. 09/04/16 [Rx] Albuterol Inhaler [Ventolin Hfa Inhaler] 2 puff INHALATION RT-Q4H PRN 10/11/16 [ History] Carbidopa-Levodopa 25-100 mg [Sinemet 25-100 mg] 1 tab PO TID 10/11/16 [History] Divalproex Sodium [Depakote] 500 mg PO BID 10/11/16 [History] Lisinopril 40 mg PO QAM 10/11/16 [History] Nitroglycerin Sl Tabs [Nitrostat] 0.4 mg SUBLINGUAL Q5M PRN 10/11/16 [History] Pravastatin Sodium [Pravachol] 40 mg PO HS 10/11/16 [History] Terazosin [Hytrin] 2 mg PO BID 10/11/16 [History] amLODIPine [Norvasc] 10 mg PO DAILY 10/11/16 [History] hydrALAZINE HCL [Apresoline] 100 mg PO BID 10/11/16 [History] risperiDONE [RisperDAL] 4 mg PO HS 10/11/16 [History] Budesonide [Pulmicort] 0.5 mg INHALATION RT-BID #60 neb 10/15/16 [Rx] Ipratropium-Albuterol Nebulize [Duoneb 0.5 mg-3 mg/3 ml Soln] 3 ml INHALATION RT -QID #120 neb 10/15/16 [Rx] Levofloxacin [Levaquin] 500 mg PO Q48H #7 tab 10/15/16 [Rx] Nystatin 100,000 Unit/ml Susp [Mycostatin Oral Susp] 500,000 unit PO QID #28 dose 10/15/16 [Rx] Follow up Appointment(s)/Referral(s): Flora Francis MD [Primary Care Provider] - 1 Week (Patient to call Dr. Francis's office Tuesday to schedule follow up appointment. The office is closed at time of discharge.) Shira Gallagher DO [Doctor of Osteopathic Medicine] - 10/29/16 2:30 pm [facility], [NON-STAFF] - 1 Week Patient Instructions/Handouts: Nystatin (By mouth), Levofloxacin (By mouth), Budesonide (By breathing), Ipratropium/Albuterol (By breathing), Fever in Adults (GEN), Pneumonia (DC) Activity/Diet/Wound Care/Special Instructions: [facility] to deliver hospital bed [phone] Discharge Disposition: HOME WITH HOME HEALTH SERVICES
[2016-10-15 12:56] VITALS: PULSE 76
== END 2016-10-15 13:30 | disposition home health service (06) | DRG 871 ==
LOC: EC 15:39 → 5MS5E 17:46
PROVIDERS: ADMIT Internal Medicine; ATTEND Internal Medicine
DX: A41.9 Sepsis, unspecified organism (principal); J15.6 Pneumonia due to other Gram-negative bacteria; N17.9 Acute kidney failure, unspecified; D69.6 Thrombocytopenia, unspecified; I11.9 Hypertensive heart disease without heart failure; J44.0 Chronic obstructive pulmonary disease with (acute) lower respiratory infection; E27.8 Other specified disorders of adrenal gland; G20 Parkinson's disease; J44.1 Chronic obstructive pulmonary disease with (acute) exacerbation; I48.91 Unspecified atrial fibrillation; E78.5 Hyperlipidemia, unspecified; F17.200 Nicotine dependence, unspecified, uncomplicated; F31.9 Bipolar disorder, unspecified; I25.10 Atherosclerotic heart disease of native coronary artery without angina pectoris; I25.2 Old myocardial infarction; I71.2 Thoracic aortic aneurysm, without rupture; K44.9 Diaphragmatic hernia without obstruction or gangrene; N20.0 Calculus of kidney; N40.0 Benign prostatic hyperplasia without lower urinary tract symptoms; Z79.899 Other long term (current) drug therapy; Z86.73 Personal history of transient ischemic attack (TIA), and cerebral infarction without residual deficits; E87.6 Hypokalemia; R91.1 Solitary pulmonary nodule; R19.7 Diarrhea, unspecified
CPT/HCPCS: 36415; 70450; 71020; 71250; 76770; 80053; 80164; 81001; 83605; 83735; 84132; 85025; 85027; 85610; 85730; 87040; 87086; 87205; 87502; 93005; 94640; 96365; 96366; 96375; 99285